=== PATIENT | male | born 1950 | race Caucasian/White ===

== ENCOUNTER → 2019-06-16 10:28 | Outpatient (CLI) | payer MEDICARE, SELFPAY ==
--- NOTE | 2019-06-16 | DI.RAD.S_ITS ---
PROCEDURE: XR CHEST 2V INDICATIONS: PANLOBULAR EMPHYSEMA TECHNIQUE: 2 views of the chest were acquired. COMPARISON: [facility], CR, XR CHEST 2VW, 08/27/2015, 14:51. [facility], CR, CHEST 2 VIEW, 02/02/2012, 1:39. FINDINGS: Surgical changes and devices: None. Lungs and pleura: Right-sided volume loss and ill-defined consolidation projecting in the right apex. Elsewhere, scattered scarring/atelectasis. No pleural effusions or pneumothorax. Mediastinum: Mediastinal contours are normal. Heart size is normal. Bones and chest wall: No suspicious bony abnormalities. Soft tissues appear unremarkable. IMPRESSION: Architectural distortion and consolidative opacity involving the right apex. Associated volume loss. Overall, this has markedly progressed since 08/27/15 although no more recent comparison studies. Reportedly, there is an outside CT chest from 2018 describing right upper lobe process however these images/studies are not available on PACS. While this may reflect chronic scarring and atelectasis, cannot exclude underlying neoplasm or pneumonia. Therefore recommend clinical correlation. If there is persistent clinical diagnostic uncertainty, continued surveillance with short interval chest radiographs after treatment is recommended. Findings were personally telephoned to Dr. Mora's triage nurse on 06/16/19, who will relay the findings and call back if any questions Dictated by: Henok Ramsey M.D. on 06/16/2019 at 12:56 Approved by: Henok Ramsey M.D. on 06/16/2019 at 13:19
== END ==
PROVIDERS: PCP Family Medicine; Visit Provider Family Medicine
DX: J43.1 Panlobular emphysema (principal)
CPT/HCPCS: 71046

== ENCOUNTER 2019-08-05 10:23 | Observation (INO) | payer MEDICARE, SELFPAY ==
[2019-08-05] VITALS (11 sets, daily range): BP systolic 146–182; BP diastolic 81–104; PULSE 82–98; RESP 15–29; TEMP 36.7–36.8; O2SAT 94–98; BMI 27.6
--- NOTE | 2019-08-05 10:48 | DI.CT.S_ITS ---
PROCEDURE: CT STROKE INDICATIONS: confusion, altered mental status. TECHNIQUE: Noncontrast 4.5 mm thick angled axial sections acquired from the foramen magnum to the vertex, with coronal reformats. For radiation dose reduction, the following was used: automated exposure control, adjustment of mA and/or kV according to patient size. COMPARISON: None. FINDINGS: Image quality: This examination is limited by involuntary motion artifact. CSF spaces: Basal cisterns are patent. No extra-axial fluid collections. The ventricles are symmetric in size and shape. Brain: No intracranial bleeds or masses. There is cerebral volume loss for age, with resultant ventricular and sulcal prominence. There are periventricular and deep white matter chronic small vessel ischemic changes. There is intracranial internal carotid artery atherosclerosis. Skull and face: Calvarium and visualized facial bones appear intact, without suspicious lesions. Sinuses: Visualized sinuses and mastoids are clear. IMPRESSION: Unremarkable intracranial study for age, without acute intracranial hemorrhage. Note: Case discussed by telephone with Dr. Juares at 10:45 AM [place] time on August 05, 2019. This study fulfills neurological imaging criteria for inclusion or exclusion of acute stroke therapies based on available published neurological guidelines. Dictated by: Caesar Jett M.D. on 08/05/2019 at 10:45 Approved by: Caesar Jett M.D. on 08/05/2019 at 10:47
--- NOTE | 2019-08-05 10:48 | DI.RAD.S_ITS ---
PROCEDURE: XR CHEST 1V INDICATIONS: Possible stroke TECHNIQUE: One view of the chest was acquired. COMPARISON: [facility], CT, CHEST/ABD/PEL WITH CONTRAST, 02/02/2012, 16:15. [facility], CR, CHEST 2 VIEW, 02/02/2012, 1:39. [facility], CR, XR CHEST 2V, 06/16/2019, 10:47. FINDINGS: Surgical changes and devices: None. Lungs and pleura: Stable consolidative change is seen involving the right lung apex, as before. Blunting of the right costophrenic angle is seen. The lungs are hyperexpanded. Mediastinum: The cardiac contours are within normal limits. The aorta demonstrates calcification and tortuosity. Bones and chest wall: No suspicious bony lesions. Overlying soft tissues appear unremarkable. IMPRESSION: Stable consolidative change seen at the right lung apex. Differential diagnosis includes scarring and neoplasm. Please correlate with known patient history. If clinically appropriate, please consider a followup chest CT study with IV contrast for further evaluation. Mild blunting of the right lateral costophrenic angle is seen, with an appearance most consistent with scarring. Dictated by: Caesar Jett M.D. on 08/05/2019 at 10:12 Approved by: Caesar Jett M.D. on 08/05/2019 at 10:14
[2019-08-05 10:56] LABS: Add Manual Diff / Slide Review NO; Basophils Absolute Auto 0 /uL (0-100); Basophils Percent Auto 0.4 % (0-2); Eosinophils Absolute Auto 0 /uL (0-450); Eosinophils Percent Auto 0.2 % (2-4); Hematocrit 39.9 % (41-53); Hemoglobin 13.4 g/dL (13.5-17.5); Lymphocytes Absolute Auto 800 /uL (1100-4500); Lymphocytes Percent Auto 8.2 % (25-40); Mean Corpuscular HGB Conc 33.5 % (30-36); Mean Corpuscular Hemoglobin 31.5 PG (26-34); Mean Corpuscular Volume 94.1 fL (80-100); Monocytes Absolute Auto 500 /uL (0-900); Monocytes Percent Auto 4.7 % (3-14); Neutrophils Absolute Auto 8500 /uL (1500-7000); Neutrophils Percent Auto 86.5 % (50-75); Platelet Count 279 X10^3/uL (150-400); Red Blood Cell Count 4.24 X10^6/uL (4.5-5.9); Red Cell Distribution Width 13.2 % (11.6-14.8); White Blood Cell Count 9.9 X10^3/uL (4.5-11.0)
[2019-08-05 10:57] LABS: INR 1.1 (0.9-1.3); Prothrombin Time 12.7 SECONDS (10.1-12.7)
[2019-08-05 11:00] LABS: PTT Partial Thromboplastin Tim 24 SECONDS (26.4-36.2)
[2019-08-05 11:02] LABS: Alanine Aminotransferase 23 IU/L (<50); Albumin 4.4 g/dL (3.5-5.0); Albumin Globulin Ratio 1.1 (1.0-2.8); Alkaline Phosphatase 80 U/L (38-126); Aspartate Aminotransferase 51 IU/L (17-59); BUN Creatinine Ratio 31.8 (6-22); Bilirubin Total 0.9 mg/dL (0.2-1.3); Blood Urea Nitrogen 27 mg/dL (9-20); Calcium 9.5 mg/dL (8.4-10.2); Carbon Dioxide 26 mmol/L (22-32); Chloride 104 mmol/L (98-107); Creatine Kinase 282 U/L (55-170); Estimated Glomerular Filt Rate > 60.0 mL/min (>60); Glucose 139 mg/dL (80-110); Potassium 4.4 mmol/L (3.4-5.1); Sodium 138 mmol/L (137-145); Total Protein 8.4 g/dL (6.3-8.2)
--- NOTE | 2019-08-05 11:06 | DI.US.S_ITS ---
PROCEDURE: US PERIPH VENOUS LOW EXTREM RT INDICATIONS: right calf tenderness TECHNIQUE: Real-time imaging, as well as color and pulse Doppler interrogation, were performed of the lower extremity deep veins from the inguinal ligament to the popliteal fossa. COMPARISON: None. FINDINGS: The common femoral, femoral and popliteal veins are normally compressible, and free of intraluminal thrombus. Color and pulse Doppler demonstrate normal phasic intraluminal flow. There is normal augmentation response to distal compression maneuver. IMPRESSION: Negative for deep venous thrombosis. Dictated by: Caesar Jett M.D. on 08/05/2019 at 12:13 Approved by: Caesar Jett M.D. on 08/05/2019 at 12:14
[2019-08-05 11:14] LABS: Troponin I 0.024 ng/mL (0.01-0.034)
[2019-08-05 11:17] LABS: CKMB % Relative Index 2.5 % (1.5-5.0); Creatine Kinase MB 6.91 ng/mL (<2.37)
[2019-08-05 11:18] LABS: HEMOLYSIS 86 (0-50)
[2019-08-05] MEDS: SODIUM CHLORIDE 0.9% 1,000 ML 150 ML IV (12:02)
--- NOTE | 2019-08-05 12:38 | DI.CT.S_ITS ---
PROCEDURE: CT CHEST W CON INDICATIONS: cosolidation in lung apex r/o tumor TECHNIQUE: After the administration of intravenous contrast, 5 mm thick sections acquired from the pulmonary apices to the posterior costophrenic angles. 1 mm axial lung, 5 mm thick coronal and sagittal reformats and 7 mm axial MIP were acquired. For radiation dose reduction, the following was used: automated exposure control, adjustment of mA and/or kV according to patient size. COMPARISON: [facility], US, US PERIPH VENOUS LOW EXTREM RT, 08/05/2019, 12:59. [facility], CT, CT STROKE, 08/05/2019, 11:09. [facility], CR, XR CHEST 1V, 08/05/2019, 10:58. [facility], CR, XR CHEST 2V, 06/16/2019, 10:47. [facility], CT, CHEST/ABD/PEL WITH CONTRAST, 02/02/2012, 16:15. FINDINGS: Image quality: Excellent. Lungs and pleura: Consolidative changes are seen at the right lung apex, with bronchiectasis and apparent subpleural bleb formation. There is apparent necrotic material seen within one of the larger blebs, as on series 2 image 15. There is volume loss. No pneumothorax is seen. No large pleural effusion. Emphysematous changes are seen throughout the lungs. No pleural effusion is seen. In 2011, consolidative changes can be seen at the left lung base, which have now resolved. There is a small amount of layering debris seen within the carinal region, as on series 3 image 127. Mediastinum: The mediastinum is shifted to the right. Heart size is normal. Coronary artery calcifications are seen. No pericardial effusion. No mediastinal or hilar adenopathy by size criteria. Thoracic aorta and central pulmonary arteries are normal in size. Esophagus is normal in caliber. No hiatal hernia. Bones and chest wall: No suspicious bony lesions. Age-appropriate bony degenerative changes are seen. No vertebral body compression fractures. No axillary or supraclavicular adenopathy by size criteria. Thyroid gland is not well-seen. Abdomen: There is a nonobstructing stone seen within the right kidney measuring 3 mm, as on series 4 image 50. Visualized upper abdominal solid organs appear normal. Upper abdominal bowel loops are normal in caliber. IMPRESSION: Consolidative changes with associated bronchiectasis and shift of the mediastinum to the right can be seen. Chronic infection or inflammatory change is suspected. Neoplasm is possible, yet considered to be less likely. Further evaluation with PET/CT is now suggested. In 2012, there was consolidative change seen at the left base, which has now resolved. Please correlate with interval treatment history. Incidental note is made of: Underlying emphysematous changes Nonobstructing right-sided kidney stone Dictated by: Caesar Jett M.D. on 08/05/2019 at 13:00 Approved by: Caesar Jett M.D. on 08/05/2019 at 13:07
[2019-08-05 12:48] LABS: Influenza A - CEPHEID Flu A NEGATIVE (NEGATIVE); Influenza B - CEPHEID Flu B NEGATIVE (NEGATIVE)
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
[2019-08-05 13:12] LABS: Ethanol (ETOH) < 10 mg/dL
[2019-08-05 13:20] LABS: Magnesium 2.2 mg/dL (1.6-2.3)
[2019-08-05 13:21] LABS: Ur Creatinine Normal (Normal); Ur Specific Gravity Normal (Normal); Urine pH Normal (Normal)
[2019-08-05 13:22] LABS: UR Morphine/Opiate cutoff 300 Negative (Negative); Urine Amphetamines Positive (Negative); Urine Barbiturates Negative (Negative); Urine Benzodiazepines Negative (Negative); Urine Cocaine Negative (Negative); Urine MDMA Negative (Negative); Urine Methadone Negative (Negative); Urine Methamphetamines Positive (Negative); Urine Oxycodone Negative (Negative); Urine Phencyclidine Negative (Negative); Urine Tetrahydrocannabinol Positive (Negative); Urine Tricyclic Antidepressant Negative (Negative)
[2019-08-05 13:26] LABS: HCO3 ABG 26 mmol/L (22-26); Oxygen Saturation ABG 95 % (95-100); PCO2 ABG 35.6 mmHg (35-45); PO2 ABG 70 mmHg (80-100); TCO2 ABG 27 mmol/L (21-31); pH ABG 7.46 (7.35-7.45)
[2019-08-05 13:28] LABS: Fractionated Inspired Oxygen 23
[2019-08-05 15:52] LABS: Ammonia (NH3) < 9 umol/L (9-30)
[2019-08-05 16:52] LABS: Lactate (Lactic Acid) 1.4 mmol/L (0.7-2.1)
[2019-08-05] MEDS: THIAMINE 200 MG/2 ML VIAL 100 MG IV (17:28)
[2019-08-05] MEDS: DEXTROSE 5%-0.9% NS 1,000 ML 150 ML IV (17:29)
[2019-08-05] MEDS: levoFLOXacin 750 MG/150 ML PIGGYBACK 100 MG IV (17:29)
[2019-08-05] MEDS: DEXTROSE 50 % IN WATER 25 GM/50 ML SYRINGE IV (17:30)
--- NOTE | 2019-08-05 19:58 | P.HP_ITS ---
History of Present Illness History of Present Illness Date Patient Seen: 08/05/19 Time Patient Seen: 20:05 Chief complaint: AMS Narrative: Patient is a unreliable historian. He states he does not know how he got here or remembers how he got here. When asked why he is here, he states that he has had a 50 year history of asthma. States he feels well, is retired, and was manipulating the monitor controls stating that he had to turn the radio volume down. He states he lives on [facility]. He states he knows he is in the hospital, does not know the date but does know what day of the week it is and knows who is president. He denies fever, cough, shortness of breath, chest pain, nausea vomiting, is urinating well, denies diarrhea or constipation. Patient History Medical History (Updated 08/05/19 @ 20:04 by FINA Hess) Acute confusion (Acute) Asthma exacerbation, non-allergic (Acute) Fracture of knee region (Acute) Polysubstance (excluding opioids) dependence (Acute) Tobacco dependence (Chronic) Family & Social History Family History (Updated 08/05/19 @ 20:02 by FINA Hess) Father Asthma Mother Old age Social History: household members none Prior Living Arrangements House Safety & Behavioral: Feels Safe in Current Yes Environment Been Physically Hurt or No Threatened By a Person Suicidal Ideation Description None Suicide Plan Description No Plan Tobacco & Substance use: Tobacco type cigarettes Smoking Status Current every day smoker 0.5 ppd alcohol intake former alcohol intake frequency 0-2 drinks per day Substance Use Type denies Meds Home Medications and Allergies Home Medications Medication Instructions Recorded Confirmed Type albuterol sulfate [Proventil HFA] #0 02/02/12 History tiotropium bromide [Spiriva with #0 02/02/12 History HandiHaler] Allergies Allergy/AdvReac Type Severity Reaction Status Date / Time No Known Drug Allergies Allergy Verified 08/05/19 10:47 Review of Systems Review of Systems ROS: Yes All systems reviewed with the patient and are negative except as otherwise documented Exam Vital Signs (past 8 hours): - 08/05/19 12:37 08/05/19 13:56 08/05/19 14:48 Temperature Pulse Rate 95 H 96 H 96 H Respiratory Rate 20 19 Blood Pressure Blood Pressure [Left Arm] 159/99 H 163/97 H 182/101 H Pulse Oximetry 98 94 96 08/05/19 16:07 08/05/19 17:45 08/05/19 18:25 Temperature 98.2 F Pulse Rate 82 82 82 Respiratory Rate 15 20 21 Blood Pressure 146/90 H Blood Pressure [Left Arm] 165/104 H 168/93 H Pulse Oximetry 97 95 97 Oxygen Delivery Method Nasal Cannula Oxygen Flow Rate 2 Narrative Exam Narrative: Gen: Alert, oriented, cachectic 69-year-old Citizen Of The [place] male , is confused HEENT: normocephalic, atraumatic, conjunctiva clear, sclera non-icteric, oral mucosa pink and moist Neck: supple, full ROM Resp: Lungs sounds are tight with faint wheezes bilaterally, non-labored breathing CV: RRR, no murmur or rubs Abd: soft, non-tender, normoactive BTs Skin: no lesions or rashes, dry and intact Neuro: Alert and oriented X 4 w/no focal deficits Extremities: moves all 4 extremities, is ambulatory, negative Ameya?s sign Psyche: Pleasantly confused Objective Labs Result Diagrams: 08/05/19 10:39 08/05/19 10:39 Labs: Laboratory Results - last 24 hr 08/05/19 08/05/19 08/05/19 10:13 10:31 10:39 WBC 9.9 RBC 4.24 L Hgb 13.4 L Hct 39.9 L MCV 94.1 MCH 31.5 MCHC 33.5 RDW 13.2 Plt Count 279 Neut % (Auto) 86.5 H Lymph % (Auto) 8.2 L Sterling % (Auto) 4.7 Eos % (Auto) 0.2 L Baso % (Auto) 0.4 Neut # (Auto) 8500 H Lymph # (Auto) 800 L Sterling # (Auto) 500 Eos # (Auto) 0 Baso # (Auto) 0 PT INR APTT ABG pH ABG pCO2 ABG pO2 ABG HCO3 ABG Total CO2 ABG O2 Saturation ABG Base Excess FiO2 Sodium Potassium Chloride Carbon Dioxide BUN Creatinine Estimated GFR BUN/Creatinine Ratio Glucose Lactate Calcium Magnesium 2.2 Total Bilirubin AST ALT Alkaline Phosphatase Ammonia Total Creatine Kinase CK-MB (CK-2) CK-MB (CK-2) Rel Index Troponin I Total Protein Albumin Globulin Albumin/Globulin Ratio U Opiates 300ng/mL cut Ur Oxycodone Screen Urine Methadone Screen Ur Barbiturates Screen U Tricyclic Antidepress Ur Phencyclidine Scrn Ur Amphetamines Screen U Methamphetamines Scrn Ur MDMA Scrn (Ecstasy) U Benzodiazepines Scrn Urine Cocaine Screen U Marijuana (THC) Screen Ethyl Alcohol < 10 Influenza A (RT-PCR) Influenza B (RT-PCR) 08/05/19 08/05/19 08/05/19 10:39 10:39 10:39 WBC RBC Hgb Hct MCV MCH MCHC RDW Plt Count Neut % (Auto) Lymph % (Auto) Sterling % (Auto) Eos % (Auto) Baso % (Auto) Neut # (Auto) Lymph # (Auto) Sterling # (Auto) Eos # (Auto) Baso # (Auto) PT 12.7 INR 1.1 APTT 24 L ABG pH ABG pCO2 ABG pO2 ABG HCO3 ABG Total CO2 ABG O2 Saturation ABG Base Excess FiO2 Sodium 138 Potassium 4.4 Chloride 104 Carbon Dioxide 26 BUN 27 H Creatinine 0.85 Estimated GFR > 60.0 BUN/Creatinine Ratio 31.8 H Glucose 139 H Lactate 1.4 Calcium 9.5 Magnesium Total Bilirubin 0.9 AST 51 ALT 23 Alkaline Phosphatase 80 Ammonia Total Creatine Kinase 282 H CK-MB (CK-2) 6.91 H CK-MB (CK-2) Rel Index 2.5 Troponin I 0.024 Total Protein 8.4 H Albumin 4.4 Globulin 4.0 Albumin/Globulin Ratio 1.1 U Opiates 300ng/mL cut Ur Oxycodone Screen Urine Methadone Screen Ur Barbiturates Screen U Tricyclic Antidepress Ur Phencyclidine Scrn Ur Amphetamines Screen U Methamphetamines Scrn Ur MDMA Scrn (Ecstasy) U Benzodiazepines Scrn Urine Cocaine Screen U Marijuana (THC) Screen Ethyl Alcohol Influenza A (RT-PCR) Influenza B (RT-PCR) 08/05/19 08/05/19 08/05/19 12:08 12:43 13:15 WBC RBC Hgb Hct MCV MCH MCHC RDW Plt Count Neut % (Auto) Lymph % (Auto) Sterling % (Auto) Eos % (Auto) Baso % (Auto) Neut # (Auto) Lymph # (Auto) Sterling # (Auto) Eos # (Auto) Baso # (Auto) PT INR APTT ABG pH 7.46 H ABG pCO2 35.6 ABG pO2 70 L ABG HCO3 26 ABG Total CO2 27 ABG O2 Saturation 95 ABG Base Excess 2.0 FiO2 23 Sodium Potassium Chloride Carbon Dioxide BUN Creatinine Estimated GFR BUN/Creatinine Ratio Glucose Lactate Calcium Magnesium Total Bilirubin AST ALT Alkaline Phosphatase Ammonia Total Creatine Kinase CK-MB (CK-2) CK-MB (CK-2) Rel Index Troponin I Total Protein Albumin Globulin Albumin/Globulin Ratio U Opiates 300ng/mL cut Negative Ur Oxycodone Screen Negative Urine Methadone Screen Negative Ur Barbiturates Screen Negative U Tricyclic Antidepress Negative Ur Phencyclidine Scrn Negative Ur Amphetamines Screen Positive H U Methamphetamines Scrn Positive H Ur MDMA Scrn (Ecstasy) Negative U Benzodiazepines Scrn Negative Urine Cocaine Screen Negative U Marijuana (THC) Screen Positive H Ethyl Alcohol Influenza A (RT-PCR) Flu a negative Influenza B (RT-PCR) Flu b negative 08/05/19 13:30 WBC RBC Hgb Hct MCV MCH MCHC RDW Plt Count Neut % (Auto) Lymph % (Auto) Sterling % (Auto) Eos % (Auto) Baso % (Auto) Neut # (Auto) Lymph # (Auto) Sterling # (Auto) Eos # (Auto) Baso # (Auto) PT INR APTT ABG pH ABG pCO2 ABG pO2 ABG HCO3 ABG Total CO2 ABG O2 Saturation ABG Base Excess FiO2 Sodium Potassium Chloride Carbon Dioxide BUN Creatinine Estimated GFR BUN/Creatinine Ratio Glucose Lactate Calcium Magnesium Total Bilirubin AST ALT Alkaline Phosphatase Ammonia < 9 L Total Creatine Kinase CK-MB (CK-2) CK-MB (CK-2) Rel Index Troponin I Total Protein Albumin Globulin Albumin/Globulin Ratio U Opiates 300ng/mL cut Ur Oxycodone Screen Urine Methadone Screen Ur Barbiturates Screen U Tricyclic Antidepress Ur Phencyclidine Scrn Ur Amphetamines Screen U Methamphetamines Scrn Ur MDMA Scrn (Ecstasy) U Benzodiazepines Scrn Urine Cocaine Screen U Marijuana (THC) Screen Ethyl Alcohol Influenza A (RT-PCR) Influenza B (RT-PCR) Assessment & Plan Assessment & Plan narrative: John Fofana is a 69 y.o. male who is admitted for probable confusion associated with polysubstance abuse 1. Polysubstance abuse, acute, present on admission -patient is positive for amphetamines, methamphetamines, and THC, nondetectable alcohol level -he will be placed on CIWA precautions and seizure precautions - consult for drug abuse screen in the morning 2. Possible asthma exacerbation, acute, present on admission -DuoNeb and albuterol nebulizers as needed q.2 hours for wheezing or shortness of breath -influenza A and B are negative -I have ordered a respiratory panel, urine Legionella, strep screen, and procalcitonin add-on -need to obtain local medical records if available tomorrow FEN: NS at 100 mL/hour, low-sodium diet, chemistries in the am Patient is placed into observation as his stay is not likely to exceed 2 midnights. VTE Prophylaxis: Enoxaparin 40 mg SubQ daily Medications reconciled: yes Disposition: Probable discharge to home Code Status: Full Code, patient does not have capability to make the decision Quality VTE Deep Vein Thrombosis/Pulmonary Embolism Present on Admission: No
[2019-08-05 20:45] LABS: Adenovirus Not Detected (Not Detect); Bordetella pertussis Not Detected (Not Detect); Chlamydophila pneumoniae Not Detected (Not Detect); Coronavirus 229E Not Detected (Not Detect); Coronavirus HKU1 Not Detected (Not Detect); Coronavirus NL 63 Not Detected (Not Detect); Coronavirus OC43 Not Detected (Not Detect); Human Metapneumovirus Not Detected (Not Detect); Human Rhinovirus/Enterovirus Not Detected (Not Detect); Influenza A Not Detected (Not Detect); Influenza B Not Detected (Not Detect); Mycoplasma pneumoniae Not Detected (Not Detect); Parainfluenza Virus 1 Not Detected (Not Detect); Parainfluenza Virus 2 Not Detected (Not Detect); Parainfluenza Virus 3 Not Detected (Not Detect); Parainfluenza Virus 4 Not Detected (Not Detect); Respiratory Syncytial Virus Not Detected (Not Detect)
--- NOTE | 2019-08-05 21:15 | PC.NURSE ---
Admission assessment completed. Pt has dollar bill roll in pants pocket, wallet and watch face on bedside table and keys in jacket pocket. Declines to secure in safe. Pt has box of cigarettes, automatic presser and pocket knife which this greeting card writer explained must be secured safely and pt may have upon discharge. Pt verbalizes understanding. Evening music supervisor, Dunia, to place in safe.
[2019-08-05 21:54] LABS: Procalcitonin < 0.05 ng/mL (<0.5)
[2019-08-05] MEDS: SODIUM CHLORIDE 0.9% 1,000 ML 100 ML IV (22:00)
--- NOTE | 2019-08-05 23:11 | PC.NURSE ---
Patient admitted from ER. Patient is alert but not oriented to date/year/place and somewhat to situation. Some of patient's belongings were placed in safe. Patient says he lives alone but can't exactly remember where he lives. He also cannot recall if he takes any meds at home other than for his asthma. SpO2 90's% on 2L NC, exp. wheezing and coarse crackles. BP slightly elevated. Has pock emery on arms, patient says he always has them, dry skin on legs. CIWA was 1, only slight tremors noted.
[2019-08-05 23:30] LABS: Strep Grp A by PCR Rapid Negative
[2019-08-06] VITALS (11 sets, daily range): BP systolic 145–161; BP diastolic 76–104; PULSE 76–82; RESP 16–20; TEMP 36.4–37.5; O2SAT 89–96
[2019-08-06 00:15] LABS: Adenovirus Not Detected (Not Detect); Bordetella pertussis Not Detected (Not Detect); Chlamydophila pneumoniae Not Detected (Not Detect); Coronavirus 229E Not Detected (Not Detect); Coronavirus HKU1 Not Detected (Not Detect); Coronavirus NL 63 Not Detected (Not Detect); Coronavirus OC43 Not Detected (Not Detect); Human Metapneumovirus Not Detected (Not Detect); Human Rhinovirus/Enterovirus Not Detected (Not Detect); Influenza A Not Detected (Not Detect); Influenza B Not Detected (Not Detect); Mycoplasma pneumoniae Not Detected (Not Detect); Parainfluenza Virus 1 Not Detected (Not Detect); Parainfluenza Virus 2 Not Detected (Not Detect); Parainfluenza Virus 3 Not Detected (Not Detect); Parainfluenza Virus 4 Not Detected (Not Detect); Respiratory Syncytial Virus Not Detected (Not Detect)
[2019-08-06 05:19] LABS: Add Manual Diff / Slide Review NO; Basophils Absolute Auto 0 /uL (0-100); Basophils Percent Auto 0.4 % (0-2); Eosinophils Absolute Auto 600 /uL (0-450); Eosinophils Percent Auto 8.4 % (2-4); Hematocrit 37.8 % (41-53); Hemoglobin 12.3 g/dL (13.5-17.5); Lymphocytes Absolute Auto 1600 /uL (1100-4500); Lymphocytes Percent Auto 23.1 % (25-40); Mean Corpuscular HGB Conc 32.4 % (30-36); Mean Corpuscular Hemoglobin 30.8 PG (26-34); Mean Corpuscular Volume 94.9 fL (80-100); Monocytes Absolute Auto 900 /uL (0-900); Monocytes Percent Auto 12.3 % (3-14); Neutrophils Absolute Auto 4000 /uL (1500-7000); Neutrophils Percent Auto 55.8 % (50-75); Platelet Count 246 X10^3/uL (150-400); Red Blood Cell Count 3.99 X10^6/uL (4.5-5.9); Red Cell Distribution Width 13.4 % (11.6-14.8); White Blood Cell Count 7.1 X10^3/uL (4.5-11.0)
[2019-08-06 05:33] LABS: Alanine Aminotransferase 18 IU/L (<50); Albumin 3.2 g/dL (3.5-5.0); Albumin Globulin Ratio 0.9 (1.0-2.8); Alkaline Phosphatase 61 U/L (38-126); Aspartate Aminotransferase 36 IU/L (17-59); BUN Creatinine Ratio 24.1 (6-22); Bilirubin Total 0.6 mg/dL (0.2-1.3); Blood Urea Nitrogen 20 mg/dL (9-20); Calcium 8.6 mg/dL (8.4-10.2); Carbon Dioxide 28 mmol/L (22-32); Chloride 107 mmol/L (98-107); Estimated Glomerular Filt Rate > 60.0 mL/min (>60); Globulin 3.5 g/dL (1.7-4.1); Glucose 114 mg/dL (80-110); HEMOLYSIS < 15 (0-50); Sodium 138 mmol/L (137-145); Total Protein 6.7 g/dL (6.3-8.2)
[2019-08-06] MEDS: MULTIVITAMIN 1 TABLET 1 TAB PO (09:36)
[2019-08-06] MEDS: FOLIC ACID 1 MG TABLET PO (09:36)
[2019-08-06] MEDS: THIAMINE 100 MG TABLET PO (09:36)
[2019-08-06] MEDS: ENOXAPARIN 40 MG/0.4 ML SYRINGE SUBCUT (09:36)
[2019-08-06] MEDS: SODIUM CHLORIDE 0.9% 1,000 ML 100 ML IV ×2 (09:44→19:09)
--- NOTE | 2019-08-06 11:21 | PC.NURSE ---
Spoke with Maria C Snowden who stated she was pts medical representation via phone. Pt verified this was correct and authorized this nurse to speak about his medical and personal information to Maria C. Her phone number is [phone] which was provided to case management. Maria C also stated that pts primary care physician is Dr. Mora at the [facility].
--- NOTE | 2019-08-06 15:22 | PM.PN.1 ---
Subjective Subjective Date Patient Seen: 08/06/19 Time Patient Seen: 16:29 Interval history: John Fofana III is a 69-year-old male with a past medical history of COPD, PTSD, asthma. Patient was admitted overnight for altered mental status under observation status given positive methamphetamine and marijuana in his urine. Given his right upper lung mass, concerning for possible pneumonia on the radiologist read, the emergency room sent off COVID 19 testing. This morning when checking his pulse is it seemed irregularly irregular, but EKG was performed and this was normal sinus rhythm. He was put on telemetry which to this point has been unremarkable. He does not understand weigh is here, but he is able to state that he is in the hospital and his name. He was not oriented to the date today and did not give me response when asked what day of the week was. He denies any complaints this morning, including chest pain, shortness of breath, palpitations, abdominal pain, headache, nausea, vomiting. I was able to contact his POA Maria C Miller who was extremely helpful today. She states that yesterday the patient was found wondering around the [place] knocking on windows. EMS knows him quite well on [facility], and thought that he was more confused than normal. He had apparently hopped a curb with his car at the high school. He was airlifted to [facility] for further evaluation. In talking with Maria C, she states the patient has been cognitively declining over the past few years. He was a heavy drinker in the past, but has been going to alcoholics anonymous and she believes that he has been sober for quite some time now. He has had some people living on his property in a trailer that she believes may have provided him with the methamphetamine and marijuana that was found in his urine. Since then, she has noticed some change in his behavior and he has been more irritable and aggressive recently over the past month. She also stated that on occasion he can take all of his medications at once. They have been trying to get him some [facility] with [facility] through his primary care provider, but he had had a recent chest x-ray that showed a right apical mass that his PMD wanted further evaluation of. They had not known with this mass was, but stated that given the patient's progressive mental decline, they would not pursue any interventions, and care was palliative if this were an advanced malignancy. They further have been trying to revoke his driving privileges but have found this difficult. They were working with his primary care provider to potentially establish a diagnosis of dementia, and obtain help from the [facility], but needed the above evaluation of the mass to complete a form for the [facility] apparently. She was not aware of all of his current medications, but states that his primary care provider on [facility] should be able to provide that in the morning when the open. She was concerned because he takes some medications for PTSD, but was unsure of what they were. Exam Vital Signs (past 8 hours): - 08/06/19 08:00 08/06/19 11:00 Temperature 97.7 F 98.8 F Pulse Rate 82 82 Respiratory Rate 17 16 Blood Pressure 153/91 H 145/84 H Pulse Oximetry 95 94 Oxygen Delivery Method Nasal Cannula Oxygen Flow Rate 0 Narrative Exam Narrative: GENERAL APPEARANCE: Thin appearing, elderly male, in no acute distress. SKIN: Inspection of the skin reveals no rashes, ulcerations or petechiae. HEENT: Normocephalic atraumatic, extraocular muscles are intact, oropharynx is clear and mucous membranes are moist. NECK: Supple and symmetric. There was no thyroid enlargement, and no tenderness, or masses were felt. CHEST: Barrel chested without any kyphoscoliosis. LUNGS: Auscultation of the lungs revealed no wheezes, rhonchi, or rales. CARDIOVASCULAR: There was a an irregular rate and rhythm without any murmurs rubs or gallops. ABDOMEN: Soft and nontender with normal bowel sounds. No ascites was noted. MUSCULOSKELETAL: There was no tenderness or effusions noted. Muscle strength and tone were normal. EXTREMITIES: No cyanosis, clubbing or edema. NEUROLOGIC: Alert and oriented x 2. Normal affect. Effusive with specific questioning. Strength is +5/5 in the Upper Extremities and Lower Extremities Bilaterally. Sensation to touch was normal. Objective Labs Result Diagrams: 08/06/19 04:50 08/06/19 04:50 Labs: Laboratory Results - last 24 hr 08/05/19 08/05/19 08/05/19 10:39 12:08 13:30 WBC RBC Hgb Hct MCV MCH MCHC RDW Plt Count Neut % (Auto) Lymph % (Auto) [place] % (Auto) Eos % (Auto) Baso % (Auto) Neut # (Auto) Lymph # (Auto) [place] # (Auto) Eos # (Auto) Baso # (Auto) Sodium Potassium Chloride Carbon Dioxide BUN Creatinine Estimated GFR BUN/Creatinine Ratio Glucose Lactate 1.4 Calcium Total Bilirubin AST ALT Alkaline Phosphatase Ammonia < 9 L Total Protein Albumin Globulin Albumin/Globulin Ratio Procalcitonin Chlamy pneumoniae PCR Not detected Adenovirus (PCR) Not detected B.parapertussis DNA PCR Not detected Coronavirus OC43 (PCR) Not detected Coronavirus HKU1 (PCR) Not detected Coronavirus 229E (PCR) Not detected Coronavirus NL63 (PCR) Not detected Human Metapneumovir PCR Not detected Influenza Type A (PCR) Not detected Influenza Type B (PCR) Not detected M. pneumoniae (PCR) Not detected Parainfluenza 1 (PCR) Not detected Parainfluenza 2 (PCR) Not detected Parainfluenza 3 (PCR) Not detected Parainfluenza 4 (PCR) Not detected RSV (PCR) Not detected Entero/Rhino (PCR) Not detected Group A Strep (PCR) 08/05/19 08/05/19 08/05/19 13:30 17:42 22:47 WBC RBC Hgb Hct MCV MCH MCHC RDW Plt Count Neut % (Auto) Lymph % (Auto) [place] % (Auto) Eos % (Auto) Baso % (Auto) Neut # (Auto) Lymph # (Auto) [place] # (Auto) Eos # (Auto) Baso # (Auto) Sodium Potassium Chloride Carbon Dioxide BUN Creatinine Estimated GFR BUN/Creatinine Ratio Glucose Lactate Calcium Total Bilirubin AST ALT Alkaline Phosphatase Ammonia Total Protein Albumin Globulin Albumin/Globulin Ratio Procalcitonin < 0.05 Chlamy pneumoniae PCR Not detected Adenovirus (PCR) Not detected B.parapertussis DNA PCR Not detected Coronavirus OC43 (PCR) Not detected Coronavirus HKU1 (PCR) Not detected Coronavirus 229E (PCR) Not detected Coronavirus NL63 (PCR) Not detected Human Metapneumovir PCR Not detected Influenza Type A (PCR) Not detected Influenza Type B (PCR) Not detected M. pneumoniae (PCR) Not detected Parainfluenza 1 (PCR) Not detected Parainfluenza 2 (PCR) Not detected Parainfluenza 3 (PCR) Not detected Parainfluenza 4 (PCR) Not detected RSV (PCR) Not detected Entero/Rhino (PCR) Not detected Group A Strep (PCR) Negative 08/06/19 08/06/19 04:50 04:50 WBC 7.1 RBC 3.99 L Hgb 12.3 L Hct 37.8 L MCV 94.9 MCH 30.8 MCHC 32.4 RDW 13.4 Plt Count 246 Neut % (Auto) 55.8 D Lymph % (Auto) 23.1 L [place] % (Auto) 12.3 Eos % (Auto) 8.4 H Baso % (Auto) 0.4 Neut # (Auto) 4000 Lymph # (Auto) 1600 [place] # (Auto) 900 Eos # (Auto) 600 H Baso # (Auto) 0 Sodium 138 Potassium 4.0 Chloride 107 Carbon Dioxide 28 BUN 20 Creatinine 0.83 Estimated GFR > 60.0 BUN/Creatinine Ratio 24.1 H Glucose 114 H Lactate Calcium 8.6 Total Bilirubin 0.6 AST 36 ALT 18 Alkaline Phosphatase 61 Ammonia Total Protein 6.7 Albumin 3.2 L Globulin 3.5 Albumin/Globulin Ratio 0.9 L Procalcitonin Chlamy pneumoniae PCR Adenovirus (PCR) B.parapertussis DNA PCR Coronavirus OC43 (PCR) Coronavirus HKU1 (PCR) Coronavirus 229E (PCR) Coronavirus NL63 (PCR) Human Metapneumovir PCR Influenza Type A (PCR) Influenza Type B (PCR) M. pneumoniae (PCR) Parainfluenza 1 (PCR) Parainfluenza 2 (PCR) Parainfluenza 3 (PCR) Parainfluenza 4 (PCR) RSV (PCR) Entero/Rhino (PCR) Group A Strep (PCR) Assessment & Plan Assessment & Plan narrative: John Fofana III is a 69-year-old male with a past medical history of COPD, PTSD who was admitted with worsening confusion after being found knocking on windows at the high school on [facility]. His urine was positive for methamphetamines and marijuana, and the patient seems somewhat more alert today than usual. He does appear to have had a progressive decline in his cognition over the past few years after talking with his POA, and likely has underlying dementia which is either alcohol related or vascular in nature. 1. Toxic encephalopathy, acute, present on admission - -at this time appears to be related to possible methamphetamine and marijuana use. However this may also represent a worsening chronic dementia based on the history given by his POA. -will continue to monitor at this time. There is also a slight possibility that he was more confused in the setting of an arrhythmia which was potentially heard on exam today, however telemetry has been negative to this point. -will continue telemetry -will need to touch base with his primary care provider on [facility], Dr. Mora, when his office opens tomorrow for an accurate medication list. His POA is also concerned because at times he can take all of his medications at once. -will obtain PT and OT evaluations -appreciate social Work assistance -continue CIWA protocol given history of alcohol use, however this appears less likely at this time. 2. COPD, chronic, present on admission -DuoNeb and albuterol nebulizers as needed q.2 hours for wheezing or shortness of breath -influenza A and B are negative -negative respiratory panel, procalcitonin negative, and no wheezing on exam today -this does not likely represent an asthma exacerbation, although it is possible. He was given a dose of steroids in the emergency room. Will hold off on this time given possibility of further confusion from prednisone. -CT chest did show diffuse emphysematous changes. 3. 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 Recent imaging obtained in May showed a worsening right apical consolidation/mass. - CT chest: Consolidative changes with associated bronchiectasis and shift of the mediastinum to the right can be seen. Chronic infection or inflammatory change is suspected. Neoplasm is possible, yet considered to be less likely. Further evaluation with PET/CT is now suggested. - Current POA did not appear interested in pursuing further workup given likely direction of positive care and patient's underlying medical comorbidities and current functional status. -patient has no evidence of active infection, he has had no fevers, shortness of breath, cough. He has no leukocytosis, negative procalcitonin. Emergency room did send off COVID 19 testing however this is felt highly unlikely at this time. -patient was given a dose of Levaquin in the emergency room, will not continue at this time. -patient has no symptoms including cough, hemoptysis, fevers of tuberculosis. 4. PTSD, chronic -will need to obtain medication list from patient's PMD noted above when his office opens to restart his chronic medications. Dispo: Remains observation status for further monitoring of toxic encephalopathy. Pending social work consultation. He will likely need substantial assistance going forward pending PT and OT evaluations. Code: DELGADO Lombardi states that patient is DNR and has a POLST form. Will make this change today. DVT: Lovenox daily Quality VTE Deep Vein Thrombosis/Pulmonary Embolism Present on Admission: No
--- NOTE | 2019-08-06 16:02 | PC.NURSE ---
Addendum entered by Hina Anglin R.N. 08/06/19 21:38: Offered to reposition pt in bed and pt declines. Prefers head of bed up while positioned on back. Independent with urinal use and feeding. Seizure pads in place. BL calf scd's in place. Mostly sleeping this shift. Addendum entered by Hina Anglin R.N. 08/06/19 20:49: Pt mostly sleeping, but rouses to voice and independently to use urinal. Room air saturation level has remained greater than 92% this shift. Pt has received R.T. treatment x 1 and no cough has been heard since treatment. BP 161/101 with HR 76 and FINA Ramsey was informed. No new orders. Addendum entered by Hina Anglin R.N. 08/06/19 16:18: R.T. contacted re prn treatment to manage pt's wheezes. Original Note: Pt awake and alert in bed. Care management has just seen pt. Seizure pads in place. Pt denies pain. Pt is confused and can only state name and date of accurately. Accepts reorientation easily. BP 153/[address] Gates informed. BL calf scd's in place. Offered oral fluids and pt able to self feed. Urinal use. Bed alarm set for pt safety and pt instructed not to attempt out of bed without assistance. Pt is pleasant, cooperative, jokes with staff often. Does sputum production with occasional moist cough.
--- NOTE | 2019-08-06 16:09 | CM.DANOTE ---
DCP/Brief Note: Reviewed chart. Spoke with Dr. Gates and he reports patient currently with some cognitive impairment. Unclear of actual baseline. Patient resides on [facility] and reports indicate that he drives? Patient with positive drug screen for meth and marijuana. Patient also with respiratory symptoms in ED which led patient to get tested for COVID 19. No results today. Patient with droplet precautions. Dr. Gates reports that he will call listed [facility]/Maria C [phone] to attempt to obtain more medial an social history. 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 If patient unable will call DPOA after Dr. Gates's note reviewed. P: Pending. ESTRELLA Lyle
[2019-08-06] MEDS: ALBUTEROL/IPRATROPIUM 3 ML AMPUL INH (16:51)
[2019-08-06] MEDS: ACETAMINOPHEN 325 MG TABLET 650 MG PO (19:18)
[2019-08-06] MEDS: SODIUM CHLORIDE 0.9% FLUSH 10 ML IV (20:43)
[2019-08-07] VITALS (11 sets, daily range): BP systolic 138–158; BP diastolic 73–103; PULSE 60–90; RESP 16–20; TEMP 36.2–37.3; O2SAT 87–96
[2019-08-07] MEDS: SODIUM CHLORIDE 0.9% 1,000 ML 100 ML IV ×2 (05:06→17:09)
[2019-08-07] MEDS: FOLIC ACID 1 MG TABLET PO (10:09)
[2019-08-07] MEDS: ENOXAPARIN 40 MG/0.4 ML SYRINGE SUBCUT (10:10)
[2019-08-07] MEDS: MULTIVITAMIN 1 TABLET 1 TAB PO (10:10)
[2019-08-07] MEDS: SODIUM CHLORIDE 0.9% FLUSH 10 ML IV ×2 (10:10→19:16)
[2019-08-07] MEDS: THIAMINE 100 MG TABLET PO (10:10)
--- NOTE | 2019-08-07 13:13 | PT.IIE ---
Medical History (Last Updated 08/05/19 @ 20:04 by FINA Hess) Acute confusion (Acute) Asthma exacerbation, non-allergic (Acute) Fracture of knee region (Acute) Polysubstance (excluding opioids) dependence (Acute) Tobacco dependence (Chronic) Physical Therapy Inpatient Evaluation/Re-Eval M1 PT/OT-IP Prior Functional Status Start: 08/06/19 16:46 Freq: NEEDED Status: Active Protocol: Document 08/07/19 12:45 AW (Rec: 08/07/19 13:13 AW [id number]) Medical Review Prior Functional Status Medical History Reviewed Yes Communication Pt able to make needs known. Chart review indicates mild cognitive impairment at baseline Mobility and Gait Pt reports independent functional mobility without time or distance limitation. He states he can not recall falling in recent memory. Activities of Daily Living and IADL's Independent Prior Functional Level (Other details) Pt drives, manages his own medications, and manages his own finances Social History Household Members none Living Arrangements House Number of Floors (Floors) One Floor Number of Stairs To Enter/Railing? 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 He has lived alone on [facility] for 10 years per his report. He has a brother in [place] and a sister whose location he can not recall. He states he does not see either of them much. His friend, Maria C, also lives on [place] and is his DPOA. M2 PT-IP Current Condition Start: 08/06/19 16:46 Freq: NEEDED Status: Active Protocol: Document 08/07/19 12:45 AW (Rec: 08/07/19 13:13 AW [id number]) Physical Therapy Current Condition Current Condition Evaluation Date 08/07/19 Treatment Diagnosis acute metabolic encephalopathy ; impaired balance and mobility Precautions Other Precautions CIWA and seizure precautions M3 PT-IP Subjective Start: 08/06/19 16:46 Freq: NEEDED Status: Active Protocol: Document 08/07/19 12:45 AW (Rec: 08/07/19 13:13 AW [id number]) Subjective Physical Therapy Visit Type Type Initial Evaluation Visit Start Time 11:24 Visit Stop Time 11:52 Total Visit Minutes 28 Physical Therapy Visit Comments Patient Comments Pt is willing to participate with PT Patient Goals Pt states he will return home Therapy Pain Assessment Pain When Pain Assessed At Rest Pain Present Pain Present Denied Pain M4 PT-IP Mobility and Gait Start: 08/06/19 16:46 Freq: NEEDED Status: Active Protocol: Document 08/07/19 12:45 AW (Rec: 08/07/19 13:13 AW [id number]) PT-Bed Mobility Assessment Rolling Type of Rolling Roll to Left Level of Assist Independent Supine to Sit Supine to Sit Independent Scooting Scooting to Edge of Bed Independent Scooting Up and Down in Bed Independent PT-Transfer Assessment Sit to and From Stand Sit to and from Stand Standby Assistance,1 Person Assistance,Use of Upper Extremities Equipment Transfer Assistive Device Gait Belt Orthotic/Prosthetic Devices or Brace: No Transfers Transfer Destination Chair Transfer Technique pt ambulated with fww Transfer Ability Level of Assist Standby Assistance Comments Mobility Comments Pt rolled to his left side and completed supine to sit SBA. He was able to sit EOB with and without UE support during MMT. He stood without AD SBA, exhibiting unsteadiness on initial standing from which he was able to recover without therapist assist. He stated he felt weak and woozy from being in the bed for three days. He was able to walk to the sink to wash his face and hands, demonstrating fair standing balance when he did not have a hand on the counter . He ambulated around the room CGA with poorly-coordinated gait without use of assistive device. He then transferred to the chair SBA where he was positioned with call light and all needs within reach and chair alarm armed for safety. Gait Assessment Gait Gait Assistance Required: Standby Assistance,Contact Guard Assist Distance (Feet) 40 Able to Maintain Weight Bearing Status Yes During Gait Assistive Devices Assistive Device None,Gait Belt Orthotic/Prosthetic Devices or Brace: No Gait Deviations General Gait Pattern Ataxic,Decreased Stride Length ,Decreased Feet Clearance, Flexed Trunk Factors Limiting Gait Function Factors Limiting Gait Function Incoordination Comments Gait Comments See mobility comments. Pt presents with ataxic, unsteady gait but without evident LOB during gait. Stair Climbing Assessment Comments Stair Climbing Comments Not assessed. No stairs at home. PT-Balance Assessment Sitting Balance and Reactions Static Sitting Balance Ability Normal Dynamic Sitting Balance Ability Normal Standing Balance and Reactions Static Standing Balance Ability Good Dynamic Standing Balance Ability Fair Device Used none M5 PT-IP Objective Assessments Start: 08/06/19 16:46 Freq: NEEDED Status: Active Protocol: Document 08/07/19 12:45 AW (Rec: 08/07/19 13:13 AW [id number]) Orientation Orientation/Cognition Level of Alertness Confusional State Orientation Name,Place,Situation Language Function Ability No Deficits Noted Safety Awareness Decreased Safety Awareness Memory Description Short Term Impaired Comments Pt not oriented to time, had trouble [place], and was unable to recall any of three words he was asked to remember (apple, table, roro ) after five minutes. Gross Range of Motion Lower Extremity ROM Assessment Within Functional Limits Strength Lower Extremity Strength Assessment Within Functional Limits Comments Strength Comments BLE grossly 5/5 Coordination Assessment Assessment Coordination Comments Did not assess. Plan to assess at next visit Sensation Assessment Sensation Gross Sensation WNL Muscle Tone Muscle Tone WNL Yes M6 PT-IP Treatment Start: 08/06/19 16:46 Freq: NEEDED Status: Active Protocol: Document 08/07/19 12:45 AW (Rec: 08/07/19 13:13 AW [id number]) Physical Therapy Treatment Education Education Provided Safety Other Treatments Other Treatment Performed Provided education on role of PT, plan of care, and possible need for assistive device M7 PT-IP Assessment and Plan Start: 08/06/19 16:46 Freq: NEEDED Status: Active Protocol: Document 08/07/19 12:45 AW (Rec: 08/07/19 13:13 AW [id number]) PT Summary Assessment and Plan Potential Rehabilitation Potential Good Status of Condition at Evaluation Evolving Summary Impairments Balance,Coordination,Cognition ,Transfers,Gait Assessment Summary John is a 69yo man admitted with acute metabolic encephalopathy possibly related to positive screen for methamphetamine and THC. Per chart review, pt has mild cognitive impairment at baseline and is independent with functional mobility. On evaluation, pt required SBA to [facility] for ambulation without assistive device. He was unsteady in gait but had no evident LOB. He will benefit from continue acute PT to address gait and balance impairments. He may also benefit from subacute PT either with home health or outpatient once medically cleared for discharge.. Goals Bed Mobility Goal Independent Transfer Goal Independent Gait Goal Independent Gait Distance 250 Treatment Plan Other Recommendations and Next Treatment assess coordination, DGI or Focus modified DGI Recommendations To Nursing Amount of Assist Needed Standby Assistance Discharge Recommendations PT Discharge Recommendations Home with Assistance,Home Health,Outpatient PT Transportation Needs at Discharge Private Vehicle
--- NOTE | 2019-08-07 13:15 | PT.IIE ---
Medical History (Last Updated 08/05/19 @ 20:04 by FINA Hess) Acute confusion (Acute) Asthma exacerbation, non-allergic (Acute) Fracture of knee region (Acute) Polysubstance (excluding opioids) dependence (Acute) Tobacco dependence (Chronic) Physical Therapy Inpatient Evaluation/Re-Eval M1 PT/OT-IP Prior Functional Status Start: 08/06/19 16:46 Freq: NEEDED Status: Active Protocol: Document 08/07/19 12:45 AW (Rec: 08/07/19 13:13 AW [id number]) Medical Review Prior Functional Status Medical History Reviewed Yes Communication Pt able to make needs known. Chart review indicates mild cognitive impairment at baseline Mobility and Gait Pt reports independent functional mobility without time or distance limitation. He states he can not recall falling in recent memory. Activities of Daily Living and IADL's Independent Prior Functional Level (Other details) Pt drives, manages his own medications, and manages his own finances Social History Household Members none Living Arrangements House Number of Floors (Floors) One Floor Number of Stairs To Enter/Railing? 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 He has lived alone on [address] for 10 years per his report. He has a brother in [place] and a sister whose location he can not recall. He states he does not see either of them much. His friend, Maria C, also lives on [place] and is his DPOA. M2 PT-IP Current Condition Start: 08/06/19 16:46 Freq: NEEDED Status: Active Protocol: Document 08/07/19 12:45 AW (Rec: 08/07/19 13:13 AW [id number]) Physical Therapy Current Condition Current Condition Evaluation Date 08/07/19 Treatment Diagnosis acute metabolic encephalopathy ; impaired balance and mobility Precautions Other Precautions CIWA and seizure precautions M3 PT-IP Subjective Start: 08/06/19 16:46 Freq: NEEDED Status: Active Protocol: Document 08/07/19 12:45 AW (Rec: 08/07/19 13:13 AW [id number]) Subjective Physical Therapy Visit Type Type Initial Evaluation Visit Start Time 11:24 Visit Stop Time 11:52 Total Visit Minutes 28 Physical Therapy Visit Comments Patient Comments Pt is willing to participate with PT Patient Goals Pt states he will return home Therapy Pain Assessment Pain When Pain Assessed At Rest Pain Present Pain Present Denied Pain M4 PT-IP Mobility and Gait Start: 08/06/19 16:46 Freq: NEEDED Status: Active Protocol: Document 08/07/19 12:45 AW (Rec: 08/07/19 13:13 AW [id number]) PT-Bed Mobility Assessment Rolling Type of Rolling Roll to Left Level of Assist Independent Supine to Sit Supine to Sit Independent Scooting Scooting to Edge of Bed Independent Scooting Up and Down in Bed Independent PT-Transfer Assessment Sit to and From Stand Sit to and from Stand Standby Assistance,1 Person Assistance,Use of Upper Extremities Equipment Transfer Assistive Device Gait Belt Orthotic/Prosthetic Devices or Brace: No Transfers Transfer Destination Chair Transfer Technique pt ambulated with fww Transfer Ability Level of Assist Standby Assistance Comments Mobility Comments Pt rolled to his left side and completed supine to sit SBA. He was able to sit EOB with and without UE support during MMT. He stood without AD SBA, exhibiting unsteadiness on initial standing from which he was able to recover without therapist assist. He stated he felt weak and woozy from being in the bed for three days. He was able to walk to the sink to wash his face and hands, demonstrating fair standing balance when he did not have a hand on the counter . He ambulated around the room CGA with poorly-coordinated gait without use of assistive device. He then transferred to the chair SBA where he was positioned with call light and all needs within reach and chair alarm armed for safety. Gait Assessment Gait Gait Assistance Required: Standby Assistance,Contact Guard Assist Distance (Feet) 40 Able to Maintain Weight Bearing Status Yes During Gait Assistive Devices Assistive Device None,Gait Belt Orthotic/Prosthetic Devices or Brace: No Gait Deviations General Gait Pattern Ataxic,Decreased Stride Length ,Decreased Feet Clearance, Flexed Trunk Factors Limiting Gait Function Factors Limiting Gait Function Incoordination Comments Gait Comments See mobility comments. Pt presents with ataxic, unsteady gait but without evident LOB during gait. Stair Climbing Assessment Comments Stair Climbing Comments Not assessed. No stairs at home. PT-Balance Assessment Sitting Balance and Reactions Static Sitting Balance Ability Normal Dynamic Sitting Balance Ability Normal Standing Balance and Reactions Static Standing Balance Ability Good Dynamic Standing Balance Ability Fair Device Used none M5 PT-IP Objective Assessments Start: 08/06/19 16:46 Freq: NEEDED Status: Active Protocol: Document 08/07/19 12:45 AW (Rec: 08/07/19 13:13 AW [id number]) Orientation Orientation/Cognition Level of Alertness Confusional State Orientation Name,Place,Situation Language Function Ability No Deficits Noted Safety Awareness Decreased Safety Awareness Memory Description Short Term Impaired Comments Pt not oriented to time, had trouble [place], and was unable to recall any of three words he was asked to remember (apple, table, roro ) after five minutes. Gross Range of Motion Lower Extremity ROM Assessment Within Functional Limits Strength Lower Extremity Strength Assessment Within Functional Limits Comments Strength Comments BLE grossly 5/5 Coordination Assessment Assessment Coordination Comments Did not assess. Plan to assess at next visit Sensation Assessment Sensation Gross Sensation WNL Muscle Tone Muscle Tone WNL Yes M6 PT-IP Treatment Start: 08/06/19 16:46 Freq: NEEDED Status: Active Protocol: Document 08/07/19 12:45 AW (Rec: 08/07/19 13:13 AW [id number]) Physical Therapy Treatment Education Education Provided Safety Other Treatments Other Treatment Performed Provided education on role of PT, plan of care, and possible need for assistive device M7 PT-IP Assessment and Plan Start: 08/06/19 16:46 Freq: NEEDED Status: Active Protocol: Document 08/07/19 12:45 AW (Rec: 08/07/19 13:13 AW [id number]) PT Summary Assessment and Plan Potential Rehabilitation Potential Good Status of Condition at Evaluation Evolving Summary Impairments Balance,Coordination,Cognition ,Transfers,Gait Assessment Summary John is a 69yo man admitted with acute metabolic encephalopathy possibly related to positive screen for methamphetamine and THC. Per chart review, pt has mild cognitive impairment at baseline and is independent with functional mobility. On evaluation, pt required SBA to [facility] for ambulation without assistive device. He was unsteady in gait but had no evident LOB. He will benefit from continue acute PT to address gait and balance impairments. He may also benefit from subacute PT either with home health or outpatient once medically cleared for discharge.. Goals Bed Mobility Goal Independent Transfer Goal Independent Gait Goal Independent Gait Distance 250 Days to Meet Goals 3 Frequency of Treatment Frequency Of Treatment Once a Day Treatment Plan Physical Therapy Treatment Plan Bed Mobility Training,Transfer Training,Gait Training, Therapeutic Exercise,Balance Retraining,Discharge Planning, Neuromuscular Re-ed, Coordination Retraining Other Recommendations and Next Treatment assess coordination, DGI or Focus modified DGI Recommendations To Nursing Amount of Assist Needed Standby Assistance Discharge Recommendations PT Discharge Recommendations Home with Assistance,Home Health,Outpatient PT Transportation Needs at Discharge Private Vehicle
--- NOTE | 2019-08-07 13:50 | DIET.PN ---
Dietary Progress Note Assessment: Mr. Fofana is 69 yom who is admitted for probable confusion associated with polysubstance abuse. He reports living alone and that he does not eat as well as he should. HT: 69in WT: 123lb UBW: 170lb (per pt report) BMI: 17.2 Labs: MNA: 10 Sukumar: 19 PO's: >75% Nutrition Diagnosis: Moderate chronic malnutrition r/t reduced appetite, not interested in consuming sufficient energy aeb BMI >18.5, lifestyle substance abuse/withdrawal, NFPE moderate subcutaneous fat loss, moderate muscle wasting. Interventions: 1. Provided low sodium nutrition therapy. 2. Patient agreed to ONS ensure for added nutrition support. Diet Order: Low sodium EER: 1700 yaquelin @ 30cal/kg; 73 g pro @ 1.3g/kg Monitoring/Evaluations: weight, PO's, ons acceptance.
--- NOTE | 2019-08-07 15:22 | CM.DANOTE ---
DCP/continued: Reviewed chart. Spoke with Dr. Dubon this AM re: d/c planning. Patient seen by PT and home with assistance, HH, and or outpatient PT recommended. Patient currently being tested for COVID 19 precautions. Unclear on the date that results will be available. Met with patient explained CM/SS role. Patient reports that he resides on [facility] and is primarily I in all ADL's. Patient alert to time and place at time of visit. Patient aware that drug testing positive for meth and marijuana. Patient denies using methamphetamine. Patient believes that someone might of slipped it to me. Patient reports that he has had some shady characters at his place recently. Asked patient why and he reports that there are some individuals that leave there car at his place. Patient reports history of alcoholism and denies currently drinking. Patient previously has been involved in 12 step program (AA) but denies participating currently. Patient also denies the need for community resources for substance abuse. Patient indicates that he has close friend/Maria C ph# [phone]. Asked patient if CM team has permission to call Maria C and patient agreeable. Placed call to Maria C re: d/c planning. Maria C reports that she is very concerned about patient's current cognitive status. Patient has PCP/Dr. Mora at that to date has not deemed him incompetent. Maria C reports that she is worried how patient will get home? She is not going to pick him up. She reports in the past patient has taken [place] taxi to ferr and then she has arranged taxi for him to get home. However, she feels strongly that patient not capable of getting on appropriate ferry? Maria C requesting that [facility] call whom she identifies as his AA sponsor Larry Vallejo ph# [phone] for additional information pertaining to patient's status. [employer] agreed to call Larry and spoke with Dr. Dubon about obtaining OT evaluation for cognitive assessment. Maria C appears frustrated because she reports that she has been trying to get patient help but has had no luck. Maria C reports that she has [facility] as well as community resources on [facility]. Offered support and explained to Maria C that patient would need to be open to assistance for services as he has not been deemed incompetent. During interview with patient today he reports that he would like to go home and does not report needing anything? No doubt that his cognition has changed however, patient declines help which understandably is frustrating to Maria C and Larry. Received permission to speak with Larry from patient. Placed call and conversation very short Larry reports that patient cannot go home and that he will be watching to see what the hospital will do with what he considers is cognitively impaired. Larry became very angry with [employer] and vented frustration at lack of services. Notified Larry that [employer] uncomfortable with current conversation related to what [employer] needs to do and [facility]'s responsibility. Politely told Larry that CM/Chain Repairer would be notified and further conversation could be held with another CM steam clean machine operator and assistant guest services manager. P: Pending. Patient wants to d/c home. OT evaluation pending. Unclear on whether or not patient would even accept services. May need to consider A.P.S. referral for safety. COVID 19 results pending. ESTRELLA Lyle
--- NOTE | 2019-08-07 16:09 | P.PN_ITS ---
Subjective Subjective Date Patient Seen: 08/07/19 Interval history: Patient is a 69-year-old male who was admitted to the hospital for acute toxic encephalopathy. The [place]. He states he does not use methamphetamines. Patient states he occasionally uses marijuana. He does not recall exactly what happened other than he [place] He then found himself here at the hospital. Today he is awake and alert. He knows he is in the hospital. He knows what year it is. He does not know who the president is. He is able to state his address. Patient w as seen by occupational therapy and had a slums exam. This during the exam he scored 5/20. That puts him and they dementia category. I discussed his care with Svitlana NATARAJAN. She is concerned about him getting home on the [place]. Patient is unable to navigate independently. However if we can get him on the [place] she will be on the other side and will pick him up and return him home. He apparently has 2 daughters who have not been in the picture however it appears that the patient at this point needs 247 care. Exam Vital Signs (past 8 hours): - 08/07/19 08:40 08/07/19 10:05 08/07/19 11:04 Temperature 97.1 F L Pulse Rate 60 87 Respiratory Rate 16 20 Blood Pressure 143/73 H Pulse Oximetry 94 92 96 08/07/19 11:05 08/07/19 11:34 Temperature 98.0 F Pulse Rate 85 Respiratory Rate 16 Blood Pressure 143/95 H Pulse Oximetry 93 95 Oxygen Delivery Method Room Air Oxygen Flow Rate 1 Narrative Exam Narrative: Pleasant gentleman resting comfortably in no obvious distress Lungs: Clear to auscultation Cardiac exam: Regular normal S1-S2 with a 2/6 systolic ejection murmur Abdomen: Soft nontender nondistended Extremities: No edema Objective Labs Result Diagrams: 08/06/19 04:50 08/06/19 04:50 Assessment & Plan Assessment & Plan narrative: Assessment & Plan narrative: John Fofana III is a 69-year-old male with a past medical history of COPD, PTSD who was admitted with worsening confusion after being found knocking on windows [place] the [place] on [facility]. His urine was positive for methamphetamines and marijuana, and the patient seems somewhat more alert today than usual. He does appear to have had a progressive decline in his cognition over the past few years after talking with his POA, and likely has underlying dementia which is either alcohol related or vascular in nature. 1. Toxic encephalopathy, acute, present on admission - -at this time appears to be related to possible methamphetamine and marijuana use. However this may also represent a worsening chronic dementia based on the history given by his POA. -will continue to monitor at this time. There is also a slight possibility that he was more confused in the setting of an arrhythmia which was potentially heard on exam today, however telemetry has been negative to this point. -will continue telemetry -will need to touch base with his primary care provider on [facility], Dr. Mora, when his office opens tomorrow for an accurate medication list. His POA is also concerned because at times he can take all of his medications at once. -will obtain PT and OT evaluations -appreciate social Work assistance -continue CIWA protocol given history of alcohol use, however this appears less likely at this time. -suspect the patient has a baseline dementia with continued decrease in his functional ability. Based on his slums score of 5/20 patient likely needs 247 care 2. COPD, chronic, present on admission -DuoNeb and albuterol nebulizers as needed q.2 hours for wheezing or shortness of breath -influenza A and B are negative -negative respiratory panel, procalcitonin negative, and no wheezing on exam today -this does not likely represent an asthma exacerbation, although it is possible. He was given a dose of steroids in the emergency room. Will hold off on this time given possibility of further confusion from prednisone. -CT chest did show diffuse emphysematous changes. 3. 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 Recent imaging obtained in May showed a worsening right apical consolidation/mass. - CT chest: Consolidative changes with associated bronchiectasis and shift of the mediastinum to the right can be seen. Chronic infection or inflammatory change is suspected. Neoplasm is possible, yet considered to be less likely. Further evaluation with PET/CT is now suggested. - Current POA did not appear interested in pursuing further workup given likely direction of positive care and patient's underlying medical comorbidities and current functional status. -patient has no evidence of active infection, he has had no fevers, shortness of breath, cough. He has no leukocytosis, negative procalcitonin. Emergency room did send off COVID 19 testing however this is felt highly unlikely at this time. -patient was given a dose of Levaquin in the emergency room, will not continue at this time. -patient has no symptoms including cough, hemoptysis, fevers of tuberculosis. 4. PTSD, chronic -will need to obtain medication list from patient's PMD noted above when his office opens to restart his chronic medications. Dispo: Remains observation status for further monitoring of toxic encephalopathy. Patient very likely needs assisted living or 247 care at home. Unlikely that he will comply with this. At this point will have him follow-up w shayna Ventura and send him the results of the [facility] study to see if he can encourage the patient to consider assisted living. Patient likely to discharge home tomorrow Code: DELGADO Lombardi states that patient is DNR and has a POLST form. Will make this change today. DVT: Lovenox daily Quality VTE Deep Vein Thrombosis/Pulmonary Embolism Present on Admission: No
--- NOTE | 2019-08-07 16:58 | OT.IP.EVAL ---
Past Medical History (Last Updated 08/05/19 @ 20:04 by FINA Hess) Acute confusion (Acute) Asthma exacerbation, non-allergic (Acute) Fracture of knee region (Acute) Polysubstance (excluding opioids) dependence (Acute) Tobacco dependence (Chronic) Occupational Therapy Inpatient Evaluation/Re-Eval M1 PT/OT-IP Prior Functional Status Start: 08/07/19 17:04 Freq: NEEDED Status: Active Protocol: Document 08/07/19 16:43 [facility] (Rec: 08/07/19 17:25 [facility] [id number]) Medical Review Prior Functional Status Medical History Reviewed Yes Communication Pt able to make needs known. Chart review indicates mild cognitive impairment at baseline Mobility and Gait Pt reports independent functional mobility without time or distance limitation. He states he can not recall falling in recent memory. Activities of Daily Living and IADL's Independent Prior Functional Level (Other details) Pt drives, manages his own medications, and manages his own finances Social History Household Members none Living Arrangements House Number of Floors (Floors) One Floor Number of Stairs To Enter/Railing? 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 He has lived alone on [facility] for 10 years per his report. He has a brother in [place] and a sister whose location he can not recall. He states he does not see either of them much. His friend, Maria C, also lives on [address] and is his DPOA. Per medical chart states that Maria C has noted his cognition declining over the years and does not feel that he [place] own now or driving on his own. M2 OT-IP Current Condition Start: 08/07/19 17:04 Freq: Status: Active Protocol: Document 08/07/19 16:43 [facility] (Rec: 08/07/19 17:25 [facility] [id number]) Occupational Therapy Current Condition Current Condition Evaluation Date 08/07/19 Treatment Diagnosis Acute metabolic encephalopathy Diagnosis Onset Date 08/05/19 M3 OT- IP Subjective and Pain Start: 08/07/19 17:04 Freq: Status: Active Protocol: Document 08/07/19 16:43 [facility] (Rec: 08/07/19 17:25 [facility] [id number]) OT- Subjective Occupational Therapy Visit Type Type Initial Evaluation Visit Start Time 16:43 Visit Stop Time 16:58 Total Visit Minutes 15 Occupational Therapy Visit Comments Patient Comments Pt not wanting to get up but agreed to take to OT and do cognitive assessment as physician has requested. Patient/Caregiver Goals To go home. OT Pain Assessment Pain When Pain Assessed At Rest Pain Present Pain Present Denied Pain M4 OT- IP ADL's Start: 08/07/19 17:04 Freq: Status: Active Protocol: Document 08/07/19 16:43 [facility] (Rec: 08/07/19 17:25 [facility] [id number]) OT TCT-Qaru-Rjthmac Comments OT Self-Feeding Comments Not at meal time, OT ADL-Grooming Comments OT Grooming Comments Pt did not perform. M6 OT- IP Functional Cognition Start: 08/07/19 17:04 Freq: Status: Active Protocol: Document 08/07/19 16:43 [facility] (Rec: 08/07/19 17:25 [facility] [id number]) Cognitive Factors Limiting Selfcare Function Cognitive Ability Level of Alertness Alert Patient Orientation Name,Year,Place Attention Span Ability Capable of Focused Attention, Unable to Sustain Attention Ability to Follow Commands Able to Follow One Step Commands with Increased Time, Able to Follow One Step Commands with Repetition Memory Description Short Term Impaired,Working Impaired Safety Awareness Underestimates Need for Assistance Problem Solving Ability Unable to Identify Errors, Needs Assist to Identify Solutions Executive Function Ability Unable to Switch Focus,Unable to Filter Distractions,Unable to Make Plans,Unable to Organize Plans,Unable to Remember Details Cognitive Tests SLUMS Pt scored 5/30, normal score for pt's education is 27/30. Pt scored implies dementia. Pt only able to state the year and state correctly, able to add two digit number correctly, and draw an X on the triangle and point out the largest shape. As pt was having difficulty, and only able to recall 3 animals in one minute, pt would state, I don't care about animals, I do not like playing these games. Information shown to physician . Cognitive Comments Cognitive Assessment Comments Pt insists that he is fine and able to take care of himself, especially if he was at home. Pt has poor insight to his deficits. Pt having word finding difficulty as well. Pt not able to identify to call 911 in case of a fire or if having chest pain. OT- Vision and Hearing OT- Hearing Assessment OT- Hearing Assessment WFL OT- Vision Assessment Vision Assessment Comments Pt states his driving glasses are at home. M7 OT- IP Mobility and Balance Start: 08/07/19 17:04 Freq: Status: Active Protocol: Document 08/07/19 16:43 [facility] (Rec: 08/07/19 17:25 [facility] [id number]) OT-Transfer Assessment Comments Mobility Comments Pt not wanting to get out of bed. OT- Balance Assessment Comments Other Balance Tests/Deviations/Treatment To be assessed tomorrow if pt : able to participate. M8 OT- IP Objective Assessments Start: 08/07/19 17:04 Freq: Status: Active Protocol: Document 08/07/19 16:43 [facility] (Rec: 08/07/19 17:25 [facility] [id number]) OT Gross Range of Motion Upper Extremity Range of Motion Assessment Within Functional Limits OT Strength Upper Extremity Strength Assessment Within Functional Limits OT- Coordination Assessment Comments Coordination Comments To further assess tomorrow if pt able to participate. M9 OT- IP Assessment and Plan Start: 08/07/19 17:04 Freq: Status: Active Protocol: Document 08/07/19 16:43 [facility] (Rec: 08/07/19 17:25 [facility] [id number]) OT Summary Assessment and Plan Potential Rehabilitation Potential Fair Analytic Complexity at Evaluation Low Summary OT Impairments Functional Cognition,Grooming, Dressing,Toileting,Bathing, Toilet Transfers,Shower Transfers Progress Towards Goals Slow Progress due to Medical Issues,Slow Progress due to Cognition Assessment Summary Pt low complexity and main barrier are decreased insight to his cognitive deficits and feels that he is capable of caring for himself. Pt scored 5/30 on the [facility] Mental Status which implies dementia. At this time pt not safe to live on his own and would need someone to stay with him 24/7. Questionable whether pt will get more cognitively clearly or that this is pt's baseline. Therefore recommend that pt have someone to stay with him 24/7 versus go to skilled rehab to maximize his independence before going home with 24/7 or possible memory care. Goals Self-Feeding Goal Independent Grooming Goal Independent Dressing Goal Independent Toileting Goal Independent Bathing Goal Supervision Toilet Transfer Goal Independent Shower Transfer Goal Supervision Days to Meet Goals 15 Frequency of Treatment Frequency Of Treatment Once a Day Treatment Plan OT Treatment Plan ADL Training,Functional Cognition Training,Functional Mobility,Patient/Family Education,Discharge Planning Other Treatment Recommendations and Next Safety with ADl's. Treatment Focus Discharge Recommendations OT Discharge Recommendations Home with 24/7 Assist,SNF Rehab Transportation Needs at Discharge Private Vehicle
--- NOTE | 2019-08-07 22:03 | PC.NURSE ---
This television writer offered shower to patient twice, before dinner and at 1999. Patient refused and said he will shower in the morning.
--- NOTE | 2019-08-07 22:47 | PC.NURSE ---
Evening Shift Note- Patient in bed resting quietly and watching TV. Patient pleasent,. calm, and cooperative with care. No complaints of N/V. No complaints of pain. Patient calls appropriatly for assistance. safety measures in place, bed alarm activate. call orozco and phone within reach. will continue to monitor.
--- NOTE | 2019-08-08 03:10 | PC.NURSE ---
Patient seen and assessed at 0055. Is oriented to self, birthdate, age and month. Breath sounds diminished with scattered inspiratory/expiratory wheezes; RA sat is 92%. HRR; telemetry reading was SR w/BBB. Denies nausea. BT hypoactive and has not had BM since 08/03; no bowel meds ordered so will alert hospitalist. Has been continent of urine. Able to move self in bed. Reportedly uses walker and SBA when out of bed. Denies pain. Wearing bilateral calf SCD's. Fall risk score is high and bed alarm is activated. Currently on droplet/contact precautions as is r/o coronavirus.
[2019-08-08 03:30] VITALS: BP 152/90; PULSE 89; RESP 18; TEMP 37.2; O2SAT 92
[2019-08-08 08:00] VITALS: BP 153/106; PULSE 81; RESP 18; TEMP 36.1; O2SAT 92
[2019-08-08 08:30] VITALS: BP 143/88
[2019-08-08] MEDS: DOCUSATE 100 MG CAPSULE 200 MG PO (09:25)
[2019-08-08] MEDS: THIAMINE 100 MG TABLET PO (09:25)
[2019-08-08] MEDS: CEFTRIAXONE 1 GM/50 ML FROZ.PIGGY IV (09:25)
[2019-08-08] MEDS: FOLIC ACID 1 MG TABLET PO (09:25)
[2019-08-08] MEDS: ENOXAPARIN 40 MG/0.4 ML SYRINGE SUBCUT (09:25)
--- NOTE | 2019-08-08 10:18 | CM.DPC ---
DCP continued: EMR reviewed: CM/ RN spoke with maria c about patient D/C home today. Maria C was concerned about patient not getting off the ferry at the right stop. CM/RN called [facility] call center and was informed that the ferry staffing is not able to work as an attendant for individuals on the ferry and if patient needs assistance to get off at the right stop then the patient needs to have an attendant with him. CM/RN told Maria C this and she was concerned but stated that if he could have a folder and write on the fold that patient needs to get off on the [place] stop that she think he will be assisted. Cm/RN stated that there is no grantee that he will get assistance. Maria C stated it will be okay. CM/RN will set up [employer] to take patient to the 3:05pm ferry and will have patient have a note saying he needs to go to [facility]. CM/Rn will discuss this with CM six sigma project manager Juanpablo Espana stated plan was acceptable and CM will update patients nurse. CM/Rn called [employer] and they will poick patient up outside main entrance at 2:30pm to take patient to 3:05PM ferry today. Maria C called and updated and stated understanding. Barbie Pedraza RN
--- NOTE | 2019-08-08 11:00 | OT.IPNOTE ---
On hold for OT, awaiting results from COVID 19.
--- NOTE | 2019-08-08 11:07 | PM.DS.1 ---
History of Present Illness History of Present Illness Chief complaint: AMS Narrative: Patient is a 69-year-old male who was admitted to the hospital for acute toxic encephalopathy. The patient [place]. He states he does not use methamphetamines. Patient states he occasionally uses marijuana. He does not recall exactly what happened other than [place] He then found himself here at the hospital. Discharge Providers Provider Date of admission: 08/05/19 17:36 Discharge Date: 08/08/19 Primary care physician: Cheng Mora Consults: 08/05/19 18:53 Consult to Dietitian, Adult Routine Comment: Reason For Exam: lives alone; states doesn't eat as well as should 08/05/19 19:56 Consult to SPRAYER OPERATOR - Industrial Therapist Routine Comment: SPRAYER OPERATOR Consult: Substance Abuse Assess 08/06/19 15:23 Consult to Occupational Therapy Evaluate & Treat Comment: Physician Instructions: Evaluate and treat Consult to Physical Therapy Evaluate & Treat Comment: Physician Instructions: Evaluate and Treat 08/07/19 15:01 Consult to Occupational Therapy Evaluate & Treat Comment: Physician Instructions: Evaluate and treat Discharge provider: Alejandro Peter MD Summary Hospital Course Discharge Diagnosis: 1. Toxic encephalopathy 2. COPD 3. Right apical lung mass, chronic 4. PTSD, chronic 5. Dementia, new diagnosis 6. Polysubstance abuse Hospital Course: John Fofana III is a 69-year-old male with a past medical history of COPD, PTSD who was admitted with worsening confusion after being found knocking on windows [place] the [place] on [facility]. His urine was positive for methamphetamines and marijuana, and the patient seems somewhat more alert today than usual. He does appear to have had a progressive decline in his cognition over the past few years after talking with his POA, and likely has underlying dementia which is either alcohol related or vascular in nature. 1. Toxic encephalopathy, acute, present on admission - -at this time appears to be related to possible methamphetamine and marijuana use. However this may also represent a worsening chronic dementia based on the history given by his POA. -SLUMS 10/20 performed with OT -suspect the patient has a baseline dementia with continued decrease in his functional ability. -we have been in touch with his POA Svitlana regarding he will need closer monitoring at home and also a driving test as he probably should not be driving -per care management note ?Maria C appears frustrated because she reports that she has been trying to get patient help but has had no luck. Maria C reports that she has [facility] as well as [facility] resources on [facility]. 2. COPD, chronic, present on admission -stable -influenza A and B are negative -CT chest did show diffuse emphysematous changes. 3. Right apical lung mass, chronic, likely increasing -right apical findings have been noted on chest imaging as far back as 2015. Recent imaging obtained in May showed a worsening right apical consolidation/mass. - CT chest: Consolidative changes with associated bronchiectasis and shift of the mediastinum to the right can be seen. Chronic infection or inflammatory change is suspected. Neoplasm is possible, yet considered to be less likely. Further evaluation with PET/CT is now suggested. - Current POA did not appear interested in pursuing further workup given likely direction of positive care and patient's underlying medical comorbidities and current functional status. -patient has no evidence of active infection, he has had no fevers, shortness of breath, cough. He has no leukocytosis, negative procalcitonin. Emergency room did send off COVID 19 testing however this is felt highly unlikely at this time. -patient was given a dose of Levaquin in the emergency room, which was not continued on admission -patient has no symptoms including cough, hemoptysis, fevers of tuberculosis. 4. PTSD, chronic -will need to obtain medication list from patient's PMD noted above when his office opens to restart his chronic medications. Patient is being discharged back to his home on [place] as there is no further need for hospital stay. A COVID-19 is pending at time of discharge although again patient has no indications of infection. Status at Discharge Cognitive/behavioral status at discharge: at baseline, oriented Functional status at discharge: independent ambulation Overall status at discharge: patient is back to baseline Time Spent with Patient Time spent: Less than 30 minutes Exam Vital Signs (past 8 hours): - 08/08/19 03:30 08/08/19 08:00 Temperature 98.9 F 97.0 F L Pulse Rate 89 81 Respiratory Rate 18 18 Blood Pressure 152/90 H 153/106 H Pulse Oximetry 92 92 Oxygen Delivery Method Room Air Oxygen Flow Rate 0 Objective Labs Result Diagrams: 08/06/19 04:50 08/06/19 04:50 Discharge Plan Discharge Plan Patient Disposition: Home Discharge orders & Medications Prescriptions: Continued albuterol sulfate [Proventil HFA] 90 MCG/PUFF HFA aerosol inhaler 1 puff inhalation PRN PRN (Reason: Shortness Of Breath) Qty: 0 RF: 0 levothyroxine 175 mcg Tablet 175 mcg PO 0700 RF: 0 atorvastatin 20 mg Tablet 20 mg PO DAILY RF: 0 citalopram 10 mg Tablet 10 mg PO DAILY RF: 0 aspirin 81 mg Tablet,Delayed Release (Dr/Ec) 81 mg PO DAILY RF: 0 metoprolol succinate 25 mg Tablet Extended Release 24 Hr 25 mg PO DAILY RF: 0 lisinopril 2.5 mg Tablet 2.5 mg PO DAILY RF: 0 budesonide-formoterol 160-4.5 mcg/actuation Hfa Aerosol Inhaler 2 puff INHALATION Q12H RF: 0 meloxicam submicronized 5 mg Capsule 5 mg PO DAILY RF: 0 Follow up/Referrals: Cheng Mora [Primary Care Provider] - Diet/Activity/Treatments Diet: Diet as Tolerated Discharge Data Primary Care Provider: Cheng Mora Attending Provider: Chris Gates Admit Date/Time: 08/05/19 17:36 Quality VTE Deep Vein Thrombosis/Pulmonary Embolism Present on Admission: No
[2019-08-08] MEDS: AZITHROMYCIN 500 MG in DEXTROSE 5% IN WATER 250 ML IV (11:13)
[2019-08-08] MEDS: SODIUM CHLORIDE 0.9% FLUSH 10 ML IV (11:15)
[2019-08-08] MEDS: MULTIVITAMIN 1 TABLET 1 TAB PO (11:15)
--- NOTE | 2019-08-08 11:15 | PT-IP ANOTE ---
On hold for PT. Awaiting COVID-19 test results.
--- NOTE | 2019-08-08 13:01 | PC.NURSE ---
Patient is content, watching television at this time. He denies pain. BS with some congestion and decreased bases. He is going to be discharging home today. To catch the ferry to [place].
[2019-08-08 13:02] VITALS: BP 139/81; PULSE 80; RESP 19; TEMP 36.4; O2SAT 92
[2019-08-10 10:25] LABS: COVID19 Sendout Not Detected (Not Detected)
--- NOTE | 2019-08-23 10:15 | PC.NURSE ---
Late entry: Levaquin stopped 08/04 1859 Azithromycin stopped 08/07 1216
== END 2019-08-08 14:30 | disposition home or self-care (01) ==
LOC: ED 17:14 → AC 17:37
PROVIDERS: Nurse Practitioner Family; Admitting Provider Internal Medicine; Emergency Provider Emergency Medicine; PCP Family Medicine; Referring Provider Emergency Medicine; Visit Provider Internal Medicine
DX: T43.624A Poisoning by amphetamines, undetermined, initial encounter (principal); G92 Toxic encephalopathy; R29.818 Other symptoms and signs involving the nervous system; R41.0 Disorientation, unspecified; F17.210 Nicotine dependence, cigarettes, uncomplicated; V48.5XXA Car driver injured in noncollision transport accident in traffic accident, initial encounter; Y92.410 Unspecified street and highway as the place of occurrence of the external cause; J44.9 Chronic obstructive pulmonary disease, unspecified; F43.12 Post-traumatic stress disorder, chronic; R91.8 Other nonspecific abnormal finding of lung field; F03.90 Unspecified dementia, unspecified severity, without behavioral disturbance, psychotic disturbance, mood disturbance, and anxiety; F12.10 Cannabis abuse, uncomplicated; F15.10 Other stimulant abuse, uncomplicated; Z03.818 Encounter for observation for suspected exposure to other biological agents ruled out
CPT/HCPCS: 36415; 36600; 70450; 71045; 71260; 80053; 80305; 80320; 81003; 82140; 82550; 82553; 82805; 82962; 83605; 83735; 84145; 84484; 85025; 85610; 85730; 87449; 87502; 87633; 87651; 93005; 93010; 93971; 94640; 94762; 96361; 96365; 96366; 96367; 96372; 96375; 97161; 97165; 99284; 99285; 99406; G0378; J1650; J1956; Q9967

== ENCOUNTER → 2021-02-07 11:32 | Outpatient (CLI) | payer MEDICARE, SELFPAY ==
[2019-08-05 18:25] VITALS: BMI 27.6
[2021-02-07 20:01] LABS: Add Manual Diff / Slide Review NO; Basophils Absolute Auto 0 /uL (0-100); Basophils Percent Auto 0.5 % (0-2); Eosinophils Absolute Auto 500 /uL (0-450); Eosinophils Percent Auto 7.6 % (2-4); Hematocrit 36.8 % (41-53); Hemoglobin 11.8 g/dL (13.5-17.5); Lymphocytes Absolute Auto 2000 /uL (1100-4500); Lymphocytes Percent Auto 30.8 % (25-40); Mean Corpuscular HGB Conc 32.1 % (30-36); Mean Corpuscular Hemoglobin 29.6 PG (26-34); Mean Corpuscular Volume 92.3 fL (80-100); Monocytes Absolute Auto 600 /uL (0-900); Monocytes Percent Auto 9.2 % (3-14); Neutrophils Absolute Auto 3400 /uL (1500-7000); Neutrophils Percent Auto 51.9 % (50-75); Platelet Count 309 X10^3/uL (150-400); Red Blood Cell Count 3.99 X10^6/uL (4.5-5.9); Red Cell Distribution Width 13.7 % (11.6-14.8); White Blood Cell Count 6.6 X10^3/uL (4.5-11.0)
[2021-02-07 20:12] LABS: Alanine Aminotransferase 24 IU/L (<50); Albumin 4.1 g/dL (3.5-5.0); Albumin Globulin Ratio 1.3 (1.0-2.8); Alkaline Phosphatase 82 U/L (38-126); Aspartate Aminotransferase 30 IU/L (17-59); BUN Creatinine Ratio 25.8 (6-22); Bilirubin Total 0.4 mg/dL (0.2-1.3); Blood Urea Nitrogen 34 mg/dL (9-20); Calcium 9.9 mg/dL (8.4-10.2); Carbon Dioxide 27 mmol/L (22-32); Chloride 106 mmol/L (98-107); Cholesterol 161 mg/dL (140-199); Estimated Glomerular Filt Rate 53.5 mL/min (>60); Globulin 3.1 g/dL (1.7-4.1); Glucose 91 mg/dL (80-110); HDL Cholesterol 62 mg/dL (40-60); HEMOLYSIS < 15 (0-50); LDL Cholesterol Calculated 85 mg/dL (<100); Potassium 4.8 mmol/L (3.4-5.1); Sodium 138 mmol/L (137-145); Total Protein 7.2 g/dL (6.3-8.2); Triglycerides 70 mg/dL (35-150); Uric Acid 8.6 mg/dL (3.5-8.5)
[2021-02-07 20:40] LABS: Prostate Specific Antigen 2.18 ng/mL (0.10-4.00)
[2021-02-07 20:42] LABS: TSH w/ Reflex to FT4 < 0.02 uIU/mL (0.47-4.68)
[2021-02-07 22:31] LABS: Free T4, Direct Thyroxine 2.55 ng/dL (0.78-2.19)
== END ==
PROVIDERS: PCP Family Medicine; Visit Provider Family Medicine
DX: I10 Essential (primary) hypertension; R41.0 Disorientation, unspecified; E03.9 Hypothyroidism, unspecified; E78.5 Hyperlipidemia, unspecified; S05.00XA Injury of conjunctiva and corneal abrasion without foreign body, unspecified eye, initial encounter; G30.9 Alzheimer's disease, unspecified; F02.80 Dementia in other diseases classified elsewhere, unspecified severity, without behavioral disturbance, psychotic disturbance, mood disturbance, and anxiety; J43.9 Emphysema, unspecified
CPT/HCPCS: 80053; 80061; 84153; 84439; 84443; 84550; 85025

== ENCOUNTER → 2021-04-04 14:09 | Outpatient (CLI) | payer MEDICARE, SELFPAY ==
[2019-08-05 18:25] VITALS: BMI 27.6
[2021-04-04 19:41] LABS: Add Manual Diff / Slide Review NO; Basophils Absolute Auto 0 /uL (0-100); Basophils Percent Auto 0.4 % (0-2); Eosinophils Absolute Auto 500 /uL (0-450); Hematocrit 33.6 % (41-53); Lymphocytes Absolute Auto 1800 /uL (1100-4500); Lymphocytes Percent Auto 25.3 % (25-40); Mean Corpuscular HGB Conc 32.6 % (30-36); Mean Corpuscular Hemoglobin 30.5 PG (26-34); Mean Corpuscular Volume 93.6 fL (80-100); Monocytes Absolute Auto 900 /uL (0-900); Monocytes Percent Auto 12.2 % (3-14); Neutrophils Absolute Auto 4000 /uL (1500-7000); Neutrophils Percent Auto 55.1 % (50-75); Platelet Count 370 X10^3/uL (150-400); Red Blood Cell Count 3.59 X10^6/uL (4.5-5.9); Red Cell Distribution Width 13.6 % (11.6-14.8); White Blood Cell Count 7.2 X10^3/uL (4.5-11.0)
[2021-04-04 19:53] LABS: HEMOLYSIS < 15 (0-50); Iron 66 ug/dL (49-181)
[2021-04-04 19:55] LABS: Alanine Aminotransferase 21 IU/L (<50); Albumin 3.6 g/dL (3.5-5.0); Albumin Globulin Ratio 1.2 (1.0-2.8); Alkaline Phosphatase 61 U/L (38-126); Aspartate Aminotransferase 29 IU/L (17-59); BUN Creatinine Ratio 16.7 (6-22); Bilirubin Total 0.2 mg/dL (0.2-1.3); Blood Urea Nitrogen 17 mg/dL (9-20); Calcium 9.4 mg/dL (8.4-10.2); Carbon Dioxide 28 mmol/L (22-32); Chloride 104 mmol/L (98-107); Estimated Glomerular Filt Rate > 60.0 mL/min (>60); Glucose 93 mg/dL (80-110); HEMOLYSIS < 15 (0-50); Potassium 4.7 mmol/L (3.4-5.1); Sodium 139 mmol/L (137-145); Total Protein 6.6 g/dL (6.3-8.2)
[2021-04-04 20:04] LABS: Percent Iron Saturation 27 % (20-50); Total Iron Binding Capacity 242 ug/dL (261-462); Transferrin 187 mg/dL (206-381)
[2021-04-04 20:28] LABS: Ferritin 107 ng/mL (18-464)
== END ==
PROVIDERS: PCP Family Medicine; Visit Provider Family Medicine
DX: R41.0 Disorientation, unspecified (principal); Z86.39 Personal history of other endocrine, nutritional and metabolic disease; E03.9 Hypothyroidism, unspecified; E78.5 Hyperlipidemia, unspecified; I10 Essential (primary) hypertension; J43.9 Emphysema, unspecified; M10.9 Gout, unspecified
CPT/HCPCS: 80053; 82728; 83540; 83550; 85025

== ENCOUNTER → 2021-06-02 13:31 | Outpatient (CLI) | payer MEDICARE, SELFPAY ==
[2019-08-05 18:25] VITALS: BMI 27.6
[2021-06-02 19:40] LABS: Alanine Aminotransferase 21 IU/L (<50); Albumin 4.1 g/dL (3.5-5.0); Albumin Globulin Ratio 1.2 (1.0-2.8); Alkaline Phosphatase 72 U/L (38-126); Aspartate Aminotransferase 26 IU/L (17-59); BUN Creatinine Ratio 23.9 (6-22); Bilirubin Total 0.4 mg/dL (0.2-1.3); Blood Urea Nitrogen 28 mg/dL (9-20); Carbon Dioxide 28 mmol/L (22-32); Chloride 104 mmol/L (98-107); Estimated Glomerular Filt Rate > 60.0 mL/min (>60); Globulin 3.5 g/dL (1.7-4.1); Glucose 116 mg/dL (80-110); HEMOLYSIS < 15 (0-50); Potassium 4.8 mmol/L (3.4-5.1); Sodium 139 mmol/L (137-145); Total Protein 7.6 g/dL (6.3-8.2); Uric Acid 3.6 mg/dL (3.5-8.5)
[2021-06-02 20:00] LABS: Free T4, Direct Thyroxine 1.84 ng/dL (0.78-2.19)
[2021-06-02 20:18] LABS: Thyroid Stimulating Hormone < 0.015 uIU/mL (0.47-4.68)
== END ==
PROVIDERS: PCP Family Medicine; Referring Provider Family Medicine; Visit Provider Family Medicine
DX: R41.0 Disorientation, unspecified (principal); M10.9 Gout, unspecified; E03.9 Hypothyroidism, unspecified; I10 Essential (primary) hypertension; J43.9 Emphysema, unspecified
CPT/HCPCS: 80053; 84439; 84443; 84550

== ENCOUNTER → 2021-08-01 09:58 | Outpatient (CLI) | payer MEDICARE, SELFPAY ==
[2019-08-05 18:25] VITALS: BMI 27.6
[2021-08-01 19:39] LABS: Add Manual Diff / Slide Review NO; Basophils Absolute Auto 100 /uL (0-100); Basophils Percent Auto 0.5 % (0-2); Eosinophils Absolute Auto 200 /uL (0-450); Eosinophils Percent Auto 1.4 % (2-4); Hematocrit 41.8 % (41-53); Hemoglobin 13.8 g/dL (13.5-17.5); Lymphocytes Absolute Auto 2500 /uL (1100-4500); Lymphocytes Percent Auto 22.1 % (25-40); Mean Corpuscular HGB Conc 33.1 % (30-36); Mean Corpuscular Hemoglobin 31.6 PG (26-34); Mean Corpuscular Volume 95.6 fL (80-100); Monocytes Absolute Auto 1000 /uL (0-900); Monocytes Percent Auto 9.3 % (3-14); Neutrophils Absolute Auto 7400 /uL (1500-7000); Neutrophils Percent Auto 66.7 % (50-75); Platelet Count 289 X10^3/uL (150-400); Red Blood Cell Count 4.38 X10^6/uL (4.5-5.9); Red Cell Distribution Width 15.5 % (11.6-14.8); White Blood Cell Count 11.1 X10^3/uL (4.5-11.0)
[2021-08-01 19:56] LABS: HEMOLYSIS < 15 (0-50); Iron 129 ug/dL (49-181)
[2021-08-01 20:00] LABS: Alanine Aminotransferase 21 IU/L (<50); Albumin Globulin Ratio 1.3 (1.0-2.8); Alkaline Phosphatase 58 U/L (38-126); Aspartate Aminotransferase 28 IU/L (17-59); BUN Creatinine Ratio 23.5 (6-22); Bilirubin Total 0.8 mg/dL (0.2-1.3); Blood Urea Nitrogen 27 mg/dL (9-20); Calcium 9.4 mg/dL (8.4-10.2); Carbon Dioxide 32 mmol/L (22-32); Chloride 103 mmol/L (98-107); Estimated Glomerular Filt Rate > 60.0 mL/min (>60); Globulin 3.1 g/dL (1.7-4.1); Glucose 86 mg/dL (80-110); HEMOLYSIS 18 (0-50); Potassium 3.8 mmol/L (3.4-5.1); Sodium 139 mmol/L (137-145); Total Protein 7.1 g/dL (6.3-8.2); Uric Acid 4.5 mg/dL (3.5-8.5)
[2021-08-01 20:09] LABS: Percent Iron Saturation 44 % (20-50); Total Iron Binding Capacity 292 ug/dL (261-462); Transferrin 222 mg/dL (206-381)
[2021-08-01 20:13] LABS: Free T4, Direct Thyroxine 1.75 ng/dL (0.78-2.19)
[2021-08-01 20:32] LABS: Thyroid Stimulating Hormone < 0.015 uIU/mL (0.47-4.68)
== END ==
PROVIDERS: PCP Family Medicine; Visit Provider Family Medicine
DX: N28.9 Disorder of kidney and ureter, unspecified (principal); M1A.09X0 Idiopathic chronic gout, multiple sites, without tophus (tophi); E03.9 Hypothyroidism, unspecified; E78.00 Pure hypercholesterolemia, unspecified
CPT/HCPCS: 80053; 83540; 83550; 84439; 84443; 84550; 85025

== ENCOUNTER → 2022-07-13 10:22 | Outpatient (CLI) | payer MEDICARE, SELFPAY ==
[2019-08-05 18:25] VITALS: BMI 27.6
[2022-07-13 19:58] LABS: Add Manual Diff / Slide Review NO; Basophils Absolute Auto 0 /uL (0-100); Basophils Percent Auto 0.6 % (0-2); Eosinophils Absolute Auto 600 /uL (0-450); Eosinophils Percent Auto 8.6 % (2-4); Hematocrit 41.7 % (41-53); Hemoglobin 13.8 g/dL (13.5-17.5); Lymphocytes Absolute Auto 2200 /uL (1100-4500); Lymphocytes Percent Auto 32.4 % (25-40); Mean Corpuscular HGB Conc 33.2 % (30-36); Mean Corpuscular Volume 96.4 fL (80-100); Monocytes Absolute Auto 600 /uL (0-900); Monocytes Percent Auto 9.7 % (3-14); Neutrophils Absolute Auto 3300 /uL (1500-7000); Neutrophils Percent Auto 48.7 % (50-75); Platelet Count 284 X10^3/uL (150-400); Red Blood Cell Count 4.33 X10^6/uL (4.5-5.9); Red Cell Distribution Width 14.1 % (11.6-14.8); White Blood Cell Count 6.7 X10^3/uL (4.5-11.0)
[2022-07-13 20:06] LABS: HEMOLYSIS < 15 (0-50); Iron 176 ug/dL (49-181)
[2022-07-13 20:09] LABS: Alanine Aminotransferase 26 IU/L (<50); Albumin 4.1 g/dL (3.5-5.0); Albumin Globulin Ratio 1.4 (1.0-2.8); Alkaline Phosphatase 78 U/L (38-126); Aspartate Aminotransferase 32 IU/L (17-59); BUN Creatinine Ratio 15.8 (6-22); Blood Urea Nitrogen 18 mg/dL (9-20); Calcium 9.3 mg/dL (8.4-10.2); Carbon Dioxide 33 mmol/L (22-32); Chloride 100 mmol/L (98-107); Cholesterol 181 mg/dL (140-199); Estimated Glomerular Filt Rate > 60 mL/min (>60); Glucose 92 mg/dL (80-110); HDL Cholesterol 88 mg/dL (40-60); HEMOLYSIS < 15 (0-50); LDL Cholesterol Calculated 79 mg/dL (<100); Magnesium 2.2 mg/dL (1.6-2.3); Potassium 4.3 mmol/L (3.4-5.1); Sodium 138 mmol/L (137-145); Total Protein 7.1 g/dL (6.3-8.2); Triglycerides 71 mg/dL (35-150); Uric Acid 3.9 mg/dL (3.5-8.5)
[2022-07-13 20:13] LABS: Hemoglobin A1C% w Est Avg Glu 5.8 % (4.0-6.0)
[2022-07-13 20:19] LABS: Percent Iron Saturation 67 % (20-50); Total Iron Binding Capacity 264 ug/dL (261-462)
[2022-07-13 20:22] LABS: Transferrin 195 mg/dL (206-381)
[2022-07-13 20:39] LABS: Prostate Specific Antigen Scrn 3.81 ng/mL (0.1-4.0)
[2022-07-13 20:42] LABS: Thyroid Stimulating Hormone < 0.015 uIU/mL (0.47-4.68)
[2022-07-13 20:59] LABS: Vitamin B12 751 pg/mL (239-931)
== END ==
PROVIDERS: PCP Family Medicine; Visit Provider Family Medicine
DX: R41.0 Disorientation, unspecified (principal); I10 Essential (primary) hypertension; Z12.5 Encounter for screening for malignant neoplasm of prostate; Z86.39 Personal history of other endocrine, nutritional and metabolic disease; E03.9 Hypothyroidism, unspecified; E78.5 Hyperlipidemia, unspecified; J43.9 Emphysema, unspecified; M10.9 Gout, unspecified; N28.9 Disorder of kidney and ureter, unspecified
CPT/HCPCS: 80053; 80061; 82607; 83036; 83540; 83550; 83735; 84439; 84443; 84550; 85025; G0103

== ENCOUNTER → 2022-11-04 14:16 | Outpatient (CLI) | payer MEDICARE, SELFPAY ==
[2019-08-05 18:25] VITALS: BMI 27.6
[2022-11-04 19:54] LABS: HEMOLYSIS < 15 (0-50); Iron 135 ug/dL (49-181)
[2022-11-04 20:02] LABS: Magnesium 2.2 mg/dL (1.6-2.3)
[2022-11-04 20:04] LABS: Percent Iron Saturation 52 % (20-50); Total Iron Binding Capacity 258 ug/dL (261-462); Transferrin 171 mg/dL (206-381)
[2022-11-04 20:28] LABS: TSH w/ Reflex to FT4 0.14 uIU/mL (0.47-4.68)
[2022-11-04 20:52] LABS: Vitamin B12 821 pg/mL (239-931)
[2022-11-04 20:56] LABS: Free T4, Direct Thyroxine 1.35 ng/dL (0.78-2.19)
== END ==
PROVIDERS: PCP Family Medicine; Visit Provider Family Medicine
DX: R40.0 Somnolence (principal); E03.9 Hypothyroidism, unspecified; D64.9 Anemia, unspecified; J43.9 Emphysema, unspecified
CPT/HCPCS: 82607; 83540; 83550; 83735; 84439; 84443

== ENCOUNTER → 2023-01-13 11:15 | Outpatient (CLI) | payer MEDICARE, SELFPAY ==
[2019-08-05 18:25] VITALS: BMI 27.6
[2023-01-13 20:40] LABS: TSH w/ Reflex to FT4 0.08 uIU/mL (0.47-4.68)
[2023-01-13 21:04] LABS: Free T4, Direct Thyroxine 1.49 ng/dL (0.78-2.19)
== END ==
PROVIDERS: PCP Family Medicine; Visit Provider Family Medicine
DX: E03.9 Hypothyroidism, unspecified (principal)
CPT/HCPCS: 84439; 84443

== ENCOUNTER → 2023-07-20 10:59 | Outpatient (CLI) | payer MEDICARE, SELFPAY ==
[2019-08-05 18:25] VITALS: BMI 27.6
[2023-07-20 20:09] LABS: Free T4, Direct Thyroxine 1.05 ng/dL (0.78-2.19)
[2023-07-22 17:05] LABS: Hep C Virus Ab w/Reflex Quant NEGATIVE s/c (NEGATIVE)
== END ==
PROVIDERS: PCP Family Medicine; Visit Provider Family Medicine
DX: E03.9 Hypothyroidism, unspecified (principal); Z11.59 Encounter for screening for other viral diseases
CPT/HCPCS: 84439; 84443; 86803

== ENCOUNTER → 2023-09-20 11:13 | Outpatient (CLI) | payer MEDICARE, SELFPAY ==
[2023-08-31 11:04] VITALS: BMI 27.6
[2023-09-20 21:22] LABS: Free T4, Direct Thyroxine 1.37 ng/dL (0.78-2.19)
== END ==
PROVIDERS: PCP Family Medicine; Visit Provider Family Medicine
DX: E03.9 Hypothyroidism, unspecified (principal)
CPT/HCPCS: 84439; 84443

== ENCOUNTER → 2024-02-11 10:05 | Outpatient (CLI) | payer OTHER, SELFPAY ==
[2023-08-31 11:04] VITALS: BMI 27.6
[2024-02-11 18:08] LABS: Add Manual Diff / Slide Review NO; Basophils Absolute Auto 0 /uL (0-100); Basophils Percent Auto 0.4 % (0-2); Eosinophils Absolute Auto 300 /uL (0-450); Eosinophils Percent Auto 3.4 % (2-4); Hematocrit 45.5 % (41-53); Hemoglobin 15.2 g/dL (13.5-17.5); Lymphocytes Absolute Auto 2000 /uL (1100-4500); Lymphocytes Percent Auto 21.1 % (25-40); Mean Corpuscular HGB Conc 33.4 % (30-36); Mean Corpuscular Hemoglobin 33.3 PG (26-34); Mean Corpuscular Volume 99.9 fL (80-100); Monocytes Absolute Auto 700 /uL (0-900); Neutrophils Absolute Auto 6300 /uL (1500-7000); Neutrophils Percent Auto 67.1 % (50-75); Platelet Count 283 X10^3/uL (150-400); Red Blood Cell Count 4.55 X10^6/uL (4.5-5.9); Red Cell Distribution Width 14.3 % (11.6-14.8); White Blood Cell Count 9.3 X10^3/uL (4.5-11.0)
[2024-02-11 18:19] LABS: BUN Creatinine Ratio 21.7 (6-22); Blood Urea Nitrogen 25 mg/dL (9-20); Calcium 9.7 mg/dL (8.4-10.2); Carbon Dioxide 30 mmol/L (22-32); Chloride 103 mmol/L (98-107); Cholesterol 175 mg/dL (140-199); Estimated Glomerular Filt Rate > 60 mL/min (>60); Glucose 82 mg/dL (80-110); HDL Cholesterol 91 mg/dL (40-60); HEMOLYSIS < 15 (0-50); LDL Cholesterol Calculated 69 mg/dL (<100); Potassium 4.1 mmol/L (3.4-5.1); Sodium 137 mmol/L (137-145); Triglycerides 74 mg/dL (35-150)
[2024-02-11 18:49] LABS: TSH w/ Reflex to FT4 2.62 uIU/mL (0.47-4.68)
== END ==
PROVIDERS: PCP Family Medicine; Visit Provider Family Medicine
DX: D64.9 Anemia, unspecified (principal); E78.00 Pure hypercholesterolemia, unspecified; E03.9 Hypothyroidism, unspecified; R09.02 Hypoxemia
CPT/HCPCS: 80048; 80061; 84443; 85025